=== PATIENT | male | born 2000 | race African-American/Black ===

== ENCOUNTER 2018-07-21 10:09 | Emergency (ER) | payer SELFPAY, OTHER ==
[2018-07-21 11:06] LABS: HEMATOCRIT 44.4 % (42.0-52.0); HEMOGLOBIN 15.3 g/dl (13.5-17.5); MEAN CORPUSCULAR HEMOGLOBIN 30.5 pg (27.0-33.0); MEAN CORPUSCULAR HGB CONC 34.5 g/dl (32.0-36.5); MEAN CORPUSCULAR VOLUME 88.4 fl (80.0-96.0); PLATELET COUNT, AUTOMATED 199 10^3/uL (150-450); RED BLOOD COUNT 5.02 10^6/uL (4.30-6.10); RED CELL DISTRIBUTION WIDTH 12.7 % (11.5-14.5); WHITE BLOOD COUNT 4.2 10^3/uL (4.0-10.0)
[2018-07-21 11:56] LABS: AMPHETAMINES LEVEL URINE NEGATIVE (NEGATIVE); BARBITURATES URINE NEGATIVE (NEGATIVE); BENZODIAZEPINES URINE NEGATIVE (NEGATIVE); CANNABINOIDS URINE POSITIVE (NEGATIVE); COCAINE METABOLITE URINE NEGATIVE (NEGATIVE); METHADONE URINE NEGATIVE (NEGATIVE); OPIATES URINE NEGATIVE (NEGATIVE); PHENCYCLIDINE URINE NEGATIVE (NEGATIVE)
[2018-07-21 12:21] LABS: ACETAMINOPHEN LEVEL < 2.0 UG/ML (10.0-30.0); ALBUMIN 4.6 GM/DL (3.2-5.2); ALBUMIN/GLOBULIN RATIO 1.53 (1.00-1.93); ALKALINE PHOSPHATASE 85 U/L (45-117); ALT/SGPT 25 U/L (12-78); ANION GAP 7 MEQ/L (8-16); AST/SGOT 22 U/L (7-37); BILIRUBIN,DIRECT 0.2 MG/DL (0.0-0.2); BILIRUBIN,TOTAL 0.5 MG/DL (0.2-1.0); BLOOD UREA NITROGEN 19 MG/DL (7-18); CARBON DIOXIDE LEVEL 27 MEQ/L (21-32); CHLORIDE LEVEL 107 MEQ/L (98-107); ETHYL ALCOHOL (ETHANOL) < 0.003 % (0.000-0.010); GLUCOSE, FASTING 86 MG/DL (70-100); POTASSIUM SERUM 3.9 MEQ/L (3.5-5.1); SALICYLATE LEVEL 2.4 MG/DL (5.0-30.0); SODIUM LEVEL 141 MEQ/L (136-145); THYROID STIMULATING HORMONE 0.846 uIU/ML (0.463-3.98); TOTAL PROTEIN 7.6 GM/DL (6.4-8.2)
== END 2018-07-21 16:28 | disposition home or self-care (01) ==
LOC: M ED 10:09
DX: F43.20 Adjustment disorder, unspecified (principal); F17.210 Nicotine dependence, cigarettes, uncomplicated
CPT/HCPCS: G0480

== ENCOUNTER → 2020-06-04 | Emergency (ER) | payer MEDICAID, OTHER | END | disposition home or self-care (01) | LOC: M ED 13:55 | DX: Z46.89 Encounter for fitting and adjustment of other specified devices (principal); S69.91XD Unspecified injury of right wrist, hand and finger(s), subsequent encounter; X58.XXXD Exposure to other specified factors, subsequent encounter; Y92.9 Unspecified place or not applicable; Y93.9 Activity, unspecified; Y99.9 Unspecified external cause status ==

== ENCOUNTER 2021-09-25 02:27 | Inpatient (IN) | payer MEDICAID, OTHER ==
[~2021-09-25] VITALS: Ht 180.3 cm; Wt 72.4 kg
--- OUTSIDE RECORDS SUMMARY | 2021-09-25 02:31 | CCD ---
Author Author [facility] Organization [facility] Address Unknown Phone Unavailable Care Team Providers Care Assembly Machine Offbearer Name Role Phone Jessica Wood Unavailable Re-disclosure Warning The records that you are about to access may contain information from federally-assisted alcohol or drug abuse programs. If such information is present, then the following federally mandated warning applies: This information has been disclosed to you from records protected by federal confidentiality rules (42 CFR part 2). The federal rules prohibit you from making any further disclosure of this information unless further disclosure is expressly permitted by the written consent of the person to whom it pertains or as otherwise permitted by 42 CFR part 2. A general authorization for the release of medical or other information is NOT sufficient for this purpose. The Federal rules restrict any use of the information to criminally investigate or prosecute any alcohol or drug abuse patient.The records that you are about to access may contain highly sensitive health information, the redisclosure of which is protected by Article 27-F of the [facility] Public Health law. If you continue you may have access to information: Regarding HIV / AIDS; Provided by facilities licensed or operated by the [facility] Office of Mental Health; or Provided by the [facility] Office for People With Developmental Disabilities. If such information is present, then the following [facility] mandated warning applies: This information has been disclosed to you from confidential records which are protected by state law. State law prohibits you from making any further disclosure of this information without the specific written consent of the person to whom it pertains, or as otherwise permitted by law. Any unauthorized further disclosure in violation of state law may result in a fine or [place] [facility] sentence or both. A general authorization for the release of medical or other information is NOT sufficient authorization for further disc losure. Encounters Encounter Providers Location Date Indications Data Source(s ) Crisis Intervention - Brief Attender: Jessica Wood [facility] 05/06/2021 01:00:00 AM EDT - 05/06/2021 01:00:00 AM EDT [facility] ([facility]) Attender: Jessica Wood 05/06/2021 12:00:00 AM E DT [facility] ([facility]) Medications No Information Insurance Providers Payer name Policy type / Coverage type Policy ID Covered alliance party ID Covered alliance party's relationship to calvert Policy [place] Plan Information Medicaid S [id number] S [id number] Managed Care - Community Plan [facility] P [id number] S [id number] Medicaid S [id number] S [id number] Managed Care - Community Plan [facility] P [id number] S [id number] D Managed Care [facility] P [id number] S [id number] Managed Care - Community Plan [facility] P [id number] S [id number] Medicaid S [id number] S [id number] Managed Care - Community Plan [facility] P [id number] S [id number] Managed Care - [facility] Community Plan P [id number] S [id number] MEDICAID M [id number] Self [id number] [facility] I [id number] Self [id number] [facility] I [id number] [place] [id number] [place] [id number] SP [id number] MEDICAID [id number] SP [id number] [place] [id number] SP [id number] UNHC COMMUNITY PLAN [facility] [id number] SP [id number] SELF PAY ONLY [id number] SP [id number] UNHC COMMUNITY PLAN MCDO [id number] SP [id number] UNHC COMMUNITY PLAN MCDO [id number] SP [id number] [employer] PLAN [id number] SP [id number] zzMedicaid FFS O [id number] S [id number] [employer]UE [employer] HANSEN PLAN UNAVAILABLE SP UNAVAILABLE MEDICAID S [id number] S [id number] [employer] BCBS P [id number] S [id number] BLUE CROSS HANSEN PLAN [id number] SP [id number] Problems, Conditions, and Diagnoses Code Display Name Description Problem Type Effective Dates Data Source(s) F31.9 Bipolar disorder, unspecified Unspecified Bipola r and Related Disorder Condition 05/06/2021 12:00:00 AM EDT [facility] ([facility]) Surgeries/Procedures Procedure Description Date Indications Data Source(s) Crisis intervention service, per 15 minutes 05/06/2021 12:00:00 AM EDT - 05/06/2021 12:00:00 AM EDT [facility] ([facility]) Crisis intervention service, per 15 minutes 05/06/2021 12:00:00 AM EDT [facility] ([facility]) Results No Information Social History Code Duration Value Status Description Data Source(s ) Smoking 05/06/2021 12:00:00 AM EDT Unknown if ever smoked comp leted Unknown if ever smoked [facility] ([facility]) Vital Signs ID Date Data Source UNK Name Value Range Interpretation Code Description Data Source(s) Body weight 133.00 [lb_av] 133.00 [lb_av] JAMSHID T ([facility]) Systolic blood pressure 97 mm[Hg] 97 mm[Hg] M [facility] ([facility]) Diastolic blood pressure 74 mm[Hg] 74 mm[Hg] [facility] ([facility]) Body temperature 96.3 [degF] 96.3 [degF] [facility] ([facility]) Respiratory rate 20 /min 20 /min [facility] ( [facility]) Heart rate 73 /min 73 /min [facility] ([facility])
--- OUTSIDE RECORDS SUMMARY | 2021-09-25 04:17 | CCD ---
Author Author [facility] Organization [facility] Address Unknown Phone Unavailable Care Team Providers Care Batt Machine Operator Name Role Phone Jessica Wood Unavailable Re-disclosure [...] is protected by Article 27-F of the [facility] Public Health law. If you continue you may have access to information: Regarding HIV / AIDS; Provided by facilities licensed or operated by the [facility] Office of Mental Health; or Provided by the [facility] Office for People With Developmental Disabilities. If such information is present, then the following [facility] mandated warning applies: This information has been [...] law may result in a fine or longterm sentence or both. A general authorization for the release of medical or other information is NOT sufficient authorization for further disc losure. Encounters Encounter Providers Location Date Indications Data Source(s ) Crisis Intervention - Brief Attender: Jessica Wood [facility] 05/06/2021 01:00:00 AM EDT - 05/06/2021 01:00:00 AM EDT [facility] ([facility]) Attender: Jessica Wood 05/06/2021 12:00:00 AM E DT [facility] ([facility]) Medications No Information Insurance Providers Payer name Policy type / Coverage type Policy ID Covered alliance party ID Covered alliance party's relationship to calvert Policy Calvert Plan Information Medicaid S [id number] S [id number] Managed Care - Community Plan [facility] P [id number] S [id number] Medicaid S [id number] S [id number] Managed Care - Community Plan [facility] P [id number] S [id number] D Managed Care [facility] P [id number] S [id number] Managed Care - Community Plan [facility] P [id number] S [id number] Medicaid S [id number] S [id number] Managed Care - Community Plan [facility] P [id number] S [id number] Managed Care - [facility] Community Plan P [id number] S [id number] MEDICAID M [id number] Self [id number] [facility] I [id number] Self [id number] [facility] I [id number] Self [id number] [place] [id number] SP [id number] K MEDICAID [id number] SP [id number] [place] [id number] SP [id number] [facility] [id number] SP [id number] SELF PAY ONLY [id number] SP [id number] UNHC COMMUNITY PLAN MCDO [id number] SP [id number] UNHC COMMUNITY PLAN MCDO [id number] SP [id number] [employer] PLAN [id number] SP [id number] zzMedicaid FFS O [id number] S [id number] BLUE CROSS HANSEN PLAN UNAVAILABLE SP UNAVAILABLE MEDICAID S [id number] S [id number] [employer] BCBS P [id number] S [id number] BLUE CROSS HANSEN PLAN [id number] SP [id number] Problems, Conditions, and Diagnoses Code Display Name Description Problem Type Effective Dates Data Source(s) F31.9 Bipolar disorder, unspecified Unspecified Bipola r and Related Disorder Condition 05/06/2021 12:00:00 AM EDT [facility] ([facility]) Surgeries/Procedures Procedure Description Date Indications Data Source(s) Crisis intervention service, per 15 minutes 05/06/2021 12:00:00 AM EDT - 05/06/2021 12:00:00 AM EDT [facility] ([facility]) Crisis intervention service, per 15 minutes 05/06/2021 12:00:00 AM EDT [facility] ([facility]) Results No Information Social History Code Duration Value Status Description Data Source(s ) Smoking 05/06/2021 12:00:00 AM EDT Unknown if ever smoked comp leted Unknown if ever smoked [facility] ([facility]) Vital Signs ID Date Data Source UNK Name Value Range Interpretation Code Description Data Source(s) Body weight 133.00 [lb_av] 133.00 [lb_av] ENOCHEN T ([facility]) Systolic blood pressure 97 mm[Hg] 97 mm[Hg] M [facility] ([facility]) Heart rate 73 /min 73 /min [facility] ([facility]) Diastolic blood pressure 74 mm[Hg] 74 mm[Hg] [facility] ([facility]) Body temperature 96.3 [degF] 96.3 [degF] [facility] ([facility]) Respiratory rate 20 /min 20 /min [facility] ( [facility])
[2021-09-25 04:21] LABS: AMPHETAMINES LEVEL URINE NEGATIVE (NEGATIVE); BARBITURATES URINE NEGATIVE (NEGATIVE); BENZODIAZEPINES URINE NEGATIVE (NEGATIVE); CANNABINOIDS URINE POSITIVE (NEGATIVE); COCAINE METABOLITE URINE NEGATIVE (NEGATIVE); HEMATOCRIT 40.8 % (42.0-52.0); HEMOGLOBIN 14.1 g/dl (13.5-17.5); MEAN CORPUSCULAR HEMOGLOBIN 29.7 pg (27.0-33.0); MEAN CORPUSCULAR HGB CONC 34.6 g/dl (32.0-36.5); MEAN CORPUSCULAR VOLUME 86.1 fl (80.0-96.0); METHADONE URINE NEGATIVE (NEGATIVE); OPIATES URINE NEGATIVE (NEGATIVE); PHENCYCLIDINE URINE NEGATIVE (NEGATIVE); PLATELET COUNT, AUTOMATED 203 10^3/uL (150-450); RED BLOOD COUNT 4.74 10^6/uL (4.30-6.10); WHITE BLOOD COUNT 5.3 10^3/uL (4.0-10.0)
[2021-09-25 04:47] LABS: ACETAMINOPHEN LEVEL < 2.0 UG/ML (10.0-30.0); ALBUMIN 3.9 GM/DL (3.2-5.2); ALT/SGPT 19 U/L (12-78); BILIRUBIN,DIRECT 0.3 MG/DL (0.0-0.2); BILIRUBIN,TOTAL 0.8 MG/DL (0.2-1.0); BLOOD UREA NITROGEN 12 MG/DL (7-18); CALCIUM LEVEL 8.8 MG/DL (8.5-10.1); CARBON DIOXIDE LEVEL 27 MEQ/L (21-32); CHLORIDE LEVEL 105 MEQ/L (98-107); ETHYL ALCOHOL (ETHANOL) < 0.003 % (0.000-0.010); GLOMERULAR FILTRATION RATE > 60.0 (>60); GLUCOSE, FASTING 85 MG/DL (70-100); POTASSIUM SERUM 3.4 MEQ/L (3.5-5.1); SALICYLATE LEVEL < 1.7 MG/DL (5.0-30.0); SODIUM LEVEL 141 MEQ/L (136-145); THYROID STIMULATING HORMONE 0.832 uIU/ML (0.358-3.740)
[2021-09-25 05:00] LABS: RSV AMPLIFICATION NEGATIVE (NEGATIVE)
[2021-09-25] MEDS ORDERED: HOME MED LIST COMPLETE! XX SCH (14:10)
[2021-09-25] MEDS ORDERED: traZODone 50 MG TAB PO PRN (23:25)
[2021-09-25] MEDS ORDERED: MAALOX 30 ML SUSP *UDC PO PRN (23:25)
[2021-09-25] MEDS ORDERED: MOM 30ML SUSPENSION UDC PO PRN (23:25)
[2021-09-25] MEDS ORDERED: ACETAMINOPHEN TAB 650MG DOSE (2X325MG) PO PRN (23:25)
[2021-09-25 23:59] VITALS: BP 148/78
--- OUTSIDE RECORDS SUMMARY | 2021-09-26 00:20 | CCD ---
Author Author [facility] Organization [facility] Address Unknown Phone Unavailable Care Team Providers Care Asbestos Remover Name Role Phone Jessica Wood Unavailable Re-disclosure [...] is protected by Article 27-F of the [facility] Public Health law. If you continue you may have access to information: Regarding HIV / AIDS; Provided by facilities licensed or operated by the [facility] Office of Mental Health; or Provided by the [facility] Office for People With Developmental Disabilities. If such information is present, then the following [facility] mandated warning applies: This information has been [...] law may result in a fine or [facility] sentence or both. A general authorization for the release of medical or other information is NOT sufficient authorization for further disc losure. Encounters Encounter Providers Location Date Indications Data Source(s ) Crisis Intervention - Brief Attender: Jessica Wood [facility] Shelter 05/06/2021 01:00:00 AM EDT - 05/06/2021 01:00:00 AM EDT [facility] ([facility]) Attender: Jessica Wood 05/06/2021 12:00:00 AM E DT [facility] ([facility]) Medications No Information Insurance Providers Payer name Policy type / Coverage type Policy ID Covered libertarian ID Covered libertarian's relationship to calvert Policy Calvert Plan Information Medicaid S [id number] S [id number] Managed Care - Community Plan [facility] P [id number] S [id number] Medicaid S [id number] S [id number] Managed Care - Community Plan [facility] P [id number] S [id number] D Managed Care [facility] P [id number] S [id number] Managed Care - Community Plan [facility] P [id number] S [id number] Medicaid S [id number] S [id number] Managed Care - Community Plan [facility] P [id number] S [id number] Managed Care - [facility] Community Plan P [id number] S [id number] MEDICAID M [id number] Self [id number] [facility] I [id number] Self [id number] [facility] I [id number] Self [id number] [place] [id number] SP [id number] MEDICAID [id number] SP [id number] [place] [id number] SP [id number] UNHC COMMUNITY PLAN [facility] [id number] SP [id number] SELF PAY ONLY [id number] SP [id number] UNHC COMMUNITY PLAN MCDO [id number] SP [id number] UNHC COMMUNITY PLAN MCDO [id number] SP [id number] BLUE CROSS HANSEN PLAN [id number] SP [id number] zzMedicaid FFS O [id number] S [id number] BLUE CROSS HANSEN PLAN UNAVAILABLE SP UNAVAILABLE MEDICAID S [id number] S [id number] [employer] BCBS P [id number] S [id number] BLUE CROSS HANSEN PLAN [id number] SP [id number] Problems, Conditions, and Diagnoses Code Display Name Description Problem Type Effective Dates Data Source(s) F31.9 Bipolar disorder, unspecified Unspecified Bipola r and Related Disorder Condition 05/06/2021 12:00:00 AM EDT [facility] ([facility]) Surgeries/Procedures Procedure Description Date Indications Data Source(s) Crisis intervention service, per 15 minutes 05/06/2021 12:00:00 AM EDT - 05/06/2021 12:00:00 AM EDT [facility] ([facility]) Crisis intervention service, per 15 minutes 05/06/2021 12:00:00 AM EDT [facility] ([facility]) Results No Information Social History Code Duration Value Status Description Data Source(s ) Smoking 05/06/2021 12:00:00 AM EDT Unknown if ever smoked comp leted Unknown if ever smoked [facility] ([facility]) Vital Signs ID Date Data Source UNK Name Value Range Interpretation Code Description Data Source(s) Body weight 133.00 [lb_av] 133.00 [lb_av] MEDEN T ([facility]) Heart rate 73 /min 73 /min [facility] ([facility]) Respiratory rate 20 /min 20 /min [facility] ( [facility]) Systolic blood pressure 97 mm[Hg] 97 mm[Hg] M [facility] ([facility]) Diastolic blood pressure 74 mm[Hg] 74 mm[Hg] [facility] ([facility]) Body temperature 96.3 [degF] 96.3 [degF] [facility] ([facility])
[2021-09-26 06:12] VITALS: BP 145/63
--- NOTE | 2021-09-26 13:45 | MHHPEPDOC ---
General Date Of Admission: Sep 25, 2021 Legal Status: 9.39 Chief Complaint suicidal History of Present Illness HISTORY OF THE PRESENT ILLNESS: Patient is a 21 -year-old , male, who has a history of adjustment disorder who self presented to the ED. States "having a difficult time coping with life", states has a problem with being, "I blame myself, I feel I can't do anything right, now just isabel just wanna give up on it, I don't wanna do anything, I want it done with quick". States father told him he is gonna move, states was staying at a stepmother's friend's house. States "my head's split, feels there's a reason to be alive". Denies hallucinations, paranoia. States got out of [facility] recently Sep 18, was there for 4 months, states on probation for 10 years, will not discuss any details. Stressors include that he doesn't like choices he made in life including staying in [place], not joining the , feeling lonely, isolated. 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 Denies any hx of inpatient admissions. No weapons at home reportedly. States feels father is only person he is close to, "If he dies or leaves I will be alone". States depression got worse after ending a relationship 4 years ago, "has always stuck with me". Per PSA report: "pt is calm/cooperative, quiet, poor eye contact, states he brought self to ED tonight due to hopelessness and thoughts of suicide. Pt reports he had been living with his father though it was recently discoeverd by henrietta that pt had been living there and this may cause father to lose his apartment. Pt feels guilty about this and adds that father is angry with pt as well. Pt reports he and father have a strained relationship and father is his only support, pt has been "walking around" for past 2 days, admits to feeling very hopeless and [facility], actually walked past [address] bridge but then continued on to [facility]. Pt admits to hx of depression and anxiety, some self harm(cutting) in past but denies any prior psych admissions or suicide attempts. Pt denies HI/AH/VH, denies any substance abuse though admits to some ETOH and cigarettes "to make myself feel better", no current outpt tx or medications. Pt verbalized in several different ways how hopeless he feels including "life won, I just wanna tap out", and "there's nothing for me anymore", "I've lived long enough", and when talking about suicide states "I just want to do it quickly, something abrupt that's why I thought of jumping off the bridge". Pt reports he has no support, adds "I don't have anyone and I don't have any future"." Psychiatric Review of Systems Depression (2 or more weeks): depressed mood, anhedonia, feelings of excess/guilt (hypersomina), feelings of worthlesness, decreased energy, difficulty concentrating, psychomotor changes, suicidal thoughts Niru (4 or more days of): denies Psychosis: denies PTSD: history of trauma (states "I don't know"), denies Anxiety: situational anxiety, stressor related anxiety, panic attacks ("In social situations") Anxiety/ 6 months or more of: personality cluster A,BC (reports self harming for attention, 1x when in 10th grade, feelings of emptiness, fears of being abandoned) Past Psychiatric History Previous Psychiatric Diagnosis: adjustment disorder Previous Psychiatric Admissions: none Suicide Attempts: denies Psychiatric Follow-up: no outpatient provider Psychiatric medications: denies ever taking medication Past Medical History Medical Problems denies Head Injury: No Seizures: No Hospitalizations: Yes Surgeries: Yes (broken L arm, repair, summer 2020) Family Medical/Psychiatric HX Medical Problems denies, states doesn't know parents Psychiatric Disorders: No Addiction: No Suicide Attemps/Completions: No Addiction History nicotine (1 pack every 3 days), alcohol ("I don't know", last drink yesterday, 2 beers, "makes me feel social"), other (cannabis) Social History Childhood: Born in [place], came to [place] are at age [age] years old, multiple half siblings Abuse/Trauma: not open to discuss on this occasion Current Living Situation: currently homeless, stated went to [facility] Education: grade 12 Employment: unemployed Social Support: "my father, but at this point going through divorce" Legal: states on probation Marital: never , no kids Mental Status Examination General Appearance: well groomed, hospital scubs/clothing, other (glasses) Build: thin, tall Demeanor: withdrawn, guarded Eye Contact: avoidant Activity: slowed Behavior: cooperative, loss of interests, anhedonia, withdrawn Speech: slow, low in volume Mood: depressed, anxious Affect: flat Thought Process: circumstantial, depressed, slow Thought Content (Delusions): other (endorses SI) Thought Content (Other): phobic Thought Content (Aggressive): none reported Perception (Hallucinations): none reported Perception (Other): none reported Cognition (Impairment of): attention/concentration Cognition(Intelligence Est.): average Oriented: Awake, Alert, Oriented times three Insight: poor Judgment: Poor Psychosis: Denies Diagnoses MDD, recurrent, severe, melancholic features Cannabis use disorder Cluster B/C traits Rule out PTSD A-FIB/CHADSVASC A-FIB History Current/History of A-Fib/PAF?: No Current PO Anticoag Therapy: No Age/Risk Factor Scoring CHADSVASC: CHADSVASC Response (Comments) Value Age Risk Factor Age < 65 years old 0 Gender Risk Factor Male 0 Hx of CHF No 0 Hx of HTN No 0 Hx of Stroke/TIA/or VTE No 0 Hx of Diabetes No 0 Hx of Vascular Disease No 0 Total 0 Treatment Treatment ordered: NONE Reason Anticoagulant not given: Not indicated/[id number] Assessment Patient a 21-year-old -Beninese male who self presented to the ED due to reported severe symptoms of anhedonia, depressed mood, suicidal ideations, states he feels like he is stuck, hopeless, helpless in context of acute stressors of loneliness, isolation, homelessness, not having outpatient supports, history of reported incarceration with recent discharge and on probation reportedly for 10 years, reports that this may impact his ability to be employed and support himself. Denies significant polysubstance abuse, reports occasional alcohol use, routine cannabis use, was educated on substance use but remains precontemplative regarding his cannabis use. Patient symptoms primarily centered around melancholic depression, which has been reportedly going on for multiple years, denies history of suicide attempts or inpatient admissions, proximal college screen positive for cannabis, no acute physical com plaints. Labs unremarkable, TSH within normal limits no history of hypothyroidism. Patient agreeable to starting sertraline 50 mg p.o. daily for depression, Wellbutrin 150 mg XL for depression, discussed side effects including but not limited to suicidal ideations and those under age 25, serotonin syndrome which is rare, GI disturbances, weight changes, changes in sleep, risk for allergy, sexual side effects, and other common rare side effects. Initial Treatment Plan 1. Patient was admitted on a [9.39] status. 2. Complete history was obtained. 3. With patients permission, family will be contacted and database will be expanded. 4. Patients medication regimen will be reviewed and changed accordingly. 5. Patient will be provided with protected environment. 6. Patient will be treated with individual, group, and milieu therapies. 7. Patient will receive supportive psych-education. 8. Discharge planning will commence immediately. 9. Outpatient follow-up treatment will be strongly recommended. 10. The initial treatment plan will focus initially on: * Depression. * Risk for suicide. ESTIMATED LENGTH OF STAY: 5-10 DAYS. TIME SPENT COUNSELING AND COORDINATING INITIAL CARE: 60 minutes. Tobacco Cessation Screen If Patient is a Smoker yes Tobacco Cessation Tx Ordered?: Yes N/A-No Antipsychotics Vital Signs Vital Signs Date Time Temp Pulse Resp B/P (MAP) Pulse Ox O2 Delivery O2 Flow Rate FiO2 09/26/21 06:12 98.7 56 16 145/63 (90) 99 Room Air Medications No Active Prescriptions or Reported Meds Allergies Coded Allergies: No Known Allergies (Unverified , 09/25/21) ARYAN VICENTE MD Sep 26, 2021 13:45
[2021-09-26] MEDS: SERTRALINE HCL 50 MG TAB PO SCH (17:47)
[2021-09-26] MEDS: buPROPion **XL** TABLET 150MG (WELLBUTRIN XL) PO SCH (17:47)
[2021-09-26 17:53] VITALS: BP 137/74
--- NOTE | 2021-09-26 18:51 | ECGEPIP ---
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
[2021-09-27 07:07] VITALS: BP 129/65
[2021-09-27] MEDS: SERTRALINE HCL 50 MG TAB PO SCH (08:32)
[2021-09-27] MEDS: buPROPion **XL** TABLET 150MG (WELLBUTRIN XL) PO SCH (08:32)
--- NOTE | 2021-09-27 10:41 | MHIPNPDOC ---
[facility] Progress Note Progress Note DATE OF SERVICE: 09/27/21 HISTORY: Patient is a 21 -year-old , male, who has a history of adjustment disorder who self presented to the ED. States "having a difficult time coping with life", states has a problem with being, "I blame myself, I feel I can't do anything right, now just isabel just wanna give up on it, I don't wanna do anything, I want it done with quick". States father told him he is gonna move, states was staying at a stepmother's friend's house. States "my head's split, feels there's a reason to be alive". Denies hallucinations, p lotusia. got out of assisted recently Sep 18, was there for 4 months, states on probation for 10 years, will not discuss any details. Stressors include that he doesn't like choices he made in life including staying in [place], not joining the , feeling lonely, isolated. 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 Denies any hx of inpatient admissions. No weapons at home reportedly. States feels father is only person he is close to, "If he dies or leaves I will be alone". States depression got worse after ending a relationship 4 years ago, "has always stuck with me". Interval: Patient continues to be severely depressed, is staring at the ground and poorly engaged in interview stating I don't know to most questioning, denies acute physical complaints when asked about suicidal ideation states " not really I'm, bored now", when asked if he'll attend groups states " I don't really care about anything and I have nothing to say to anyone", was encouraged to attend groups at least sitting there and listening in, rather than isolating in his room. Reports sleep is fragmented, continues to have low energy, appetite is fair. VITAL SIGNS: See below. NEW TEST RESULTS: see below CURRENT MEDICATIONS: See below. MENTAL STATUS EXAMINATION: General Appearance: well groomed, hospital scubs/clothing, glasses, appears stated age, tall and thin, withdrawn Demeanor: withdrawn, guarded Eye Contact: avoidant, looking down the ground Activity: slowed Behavior: poorly cooperative, loss of interests, anhedonia, withdrawn Speech: slow, low in volume, nonspontaneous, minimal Mood: " I just don't care about anything" Affect: flat, anhedonic, withdrawn, mood congruent Thought Process: circumstantial, depressed, slowed Thought Content (Delusions): Vague suicidal ideations Thought Content (Other): phobic Thought Content (Aggressive): none reported Perception (Hallucinations): none reported Perception (Other): none reported Cognition (Impairment of): attention/concentration Cognition(Intelligence Est.): average Oriented: Awake, Alert, Oriented times three Insight: poor Judgment: Poor Psychosis: Denies DIAGNOSES: MDD, recurrent, severe, melancholic features Insomnia Cannabis use disorder Cluster B/C traits Rule out PTSD ASSESSMENT: Patient continues to have symptoms of melancholic depression, reports depression worse in the mornings, low energy, anhedonic, low mood, vague suicidal ideations, continues to be at risk for self-harm taking the consideration also feelings of hopelessness, worthlessness and feelings of being stuck in situation. MANAGEMENT PLAN: Sertraline increased to 75 mg p.o. every morning, trazodone increased to 100 mg nightly scheduled, continue medications, patient aware and will take time for medications to be effective TIME SPENT: 20 minutes. Vital Signs Vital Signs Date Time Temp Pulse Resp B/P (MAP) Pulse Ox O2 Delivery O2 Flow Rate FiO2 09/27/21 07:07 98.8 61 16 129/65 (86) 99 Room Air Current Medications Current Medications Medications (Trade) Dose Ordered Sig/Beba Route PRN Reason Start Time Stop Time Status Last Admin Dose Admin Acetaminophen (Tylenol Tab) 650 mg Q6HP PRN PO HEADACHE or MILD DISCOMFORT 09/25/21 23:25 Al Hydrox/Mg Hydrox/Simethicone (Mylanta) 30 ml Q4HP PRN PO HEARTBURN/INDIGESTION 09/25/21 23:25 Bupropion HCl (Wellbutrin Xl) 150 mg QAM PO 09/26/21 09:00 09/27/21 08:32 Home Med (Home Med List Complete!) ASDIRECTED XX 09/25/21 14:10 09/25/21 14:12 DC Magnesium Hydroxide (Milk Of Magnesia) 30 ml DAILYPRN PRN PO CONSTIPATION 09/25/21 23:25 Sertraline HCl (Zoloft) 50 mg QAM PO 09/26/21 09:00 09/27/21 08:32 Trazodone HCl (Desyrel) 50 mg QHSP PRN PO INSOMNIA 09/25/21 23:25 09/26/21 00:08 Allergies Coded Allergies: No Known Allergies (Unverified , 09/25/21) ARYAN VICENTE MD Sep 27, 2021 10:41
--- NOTE | 2021-09-27 16:27 | HPEPDOC ---
[facility] Medical History & Physical Date of Admission Sep 25, 2021 Date of Service: Sep 27, 2021 History and Physical CHIEF COMPLAINT: depression HISTORY OF PRESENT ILLNESS: 21M who has a history of adjustment disorder who self presented to the ED, stating he was having difficulties coping with life. Stressors include that he doesn't like choices he made in life including staying in [place], not joining the , feeling lonely, isolated. On evaluation he denied any medical complaints. He denies chest pain, shortness of breath, abdominal pain, nausea, vomiting, diarrhea, headaches, changes in vision. PAST MEDICAL HISTORY: Denies PAST SURGICAL HISTORY: Denies. SOCIAL HISTORY: States he drinks alcohol socially - 3-4 drinks per month, occasional nicotine use 2-3 cigarettes / week, denies illicit drug use. FAMILY HISTORY: Denies, he states he does not know much about his parents. ALLERGIES: Please see below. REVIEW OF SYSTEMS: Negative except as per HPI. HOME MEDICATIONS: Please see below. PHYSICAL EXAMINATION: Vital Signs: reviewed General: NAD, sitting comfortably in chair HEENT: NC/AT, EOMI Neck: supple, no masses Chest: lungs CTA B/L Heart: +S1S2, RRR Abd: soft, NT, ND, +BS Ext: no edema Skin: no rashes MSK: full ROM at large joints Neuro: no gross focal deficits Psych: AAOx3 LABORATORY DATA: See below. MICROBIOLOGY: Please see below. A/P: 21M admitted for depression, possible concerns of suicidal ideation, with no past medical history. #SI - follow as per primary team - psychiatry Thank you for this consultation. Please reconsult as needed. Vital Signs Vital Signs Date Time Temp Pulse Resp B/P (MAP) Pulse Ox O2 Delivery O2 Flow Rate FiO2 09/27/21 07:07 98.8 61 16 129/65 (86) 99 Room Air Home Medications No Active Prescriptions or Reported Meds Allergies Coded Allergies: No Known Allergies (Unverified , 09/25/21) A-FIB/CHADSVASC A-FIB History Current/History of A-Fib/PAF?: No Age/Risk Factor Scoring CHADSVASC: CHADSVASC Response (Comments) Value Age Risk Factor Age < 65 years old 0 Gender Risk Factor Male 0 Hx of CHF No 0 Hx of HTN No 0 Hx of Stroke/TIA/or VTE No 0 Hx of Diabetes No 0 Hx of Vascular Disease No 0 Total 0 DANIELLE FELICIANO MD Sep 27, 2021 16:27
[2021-09-27 16:50] VITALS: BP 138/81
[2021-09-27] MEDS ORDERED: traZODone 100 MG TAB PO SCH (21:00)
--- NOTE | 2021-09-27 21:09 | ECGEPIP ---
[facility] Test Date: 2021-09-26 Pat Name: LEA HUA Department: Room: [place] [address] Gender: Male Float Remover: ANGELICA : 2000 Requested By: ARYAN Chew Order Number: [id number] Reading MD: Lázaro Schafer Measurements Intervals Platinum Rate: 63 P: 43 SD: 172 QRS: -48 QRSD: 94 T: 27 QT: 400 QTc: 409 Interpretive Statements Normal sinus rhythm Left anterior fascicular block Early anterior R wave progression No significant change when compared to prior tracing of 09/25/2021 Electronically Signed on 09-27-2021 21:09:32 EST by Lázaro Schafer
[2021-09-28 06:14] VITALS: BP 114/58
[2021-09-28] MEDS: buPROPion **XL** TABLET 150MG (WELLBUTRIN XL) PO SCH (09:36)
[2021-09-28] MEDS: SERTRALINE HCL 25 MG TABLET PO SCH (09:37)
[2021-09-28 19:11] VITALS: BP 132/74
[2021-09-28] MEDS ORDERED: traZODone 50 MG TAB PO SCH (21:00)
[2021-09-29 06:25] VITALS: BP 144/72
[2021-09-29] MEDS: SERTRALINE HCL 25 MG TABLET PO SCH (08:18)
[2021-09-29] MEDS: buPROPion **XL** TABLET 150MG (WELLBUTRIN XL) PO SCH (08:18)
--- NOTE | 2021-09-29 12:27 | MHIPNPDOC ---
[facility] Progress Note Progress Note DATE OF SERVICE: 09/29/21 HISTORY: Patient is a 21 -year-old , male, who has a history of adjustment disorder who self presented to the ED. States "having a difficult time coping with life", states has a problem with being, "I blame myself, I feel I can't do anything right, now just isabel just wanna give up on it, I don't wanna do anything, I want it done with quick". States father told him he is gonna move, states was staying at a stepmother's friend's house. States "my head's split, feels there's a reason to be alive". Denies hallucinations, p chuynoia. got out of [facility] recently Sep 18, was there for 4 months, states on probation for 10 years, will not discuss any details. Stressors include that he doesn't like choices he made in life including staying in [place], not joining the , feeling lonely, isolated. 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 Denies any hx of inpatient admissions. No weapons at home reportedly. States feels father is only person he is close to, "If he dies or leaves I will be alone". States depression got worse after ending a relationship 4 years ago, "has always stuck with me". Interval: Patient continues to be severely depressed, is staring at the ground and poorly engaged in interview stating I don't know to most questioning, denies acute physical complaints when asked about suicidal ideation states " not really I'm, bored now", when asked if he'll attend groups states " I don't really care about anything and I have nothing to say to anyone", was encouraged to attend groups at least sitting there and listening in, rather than isolating in his room. Reports sleep is fragmented, continues to have low energy, appetite is fair. VITAL SIGNS: See below. NEW TEST RESULTS: see below CURRENT MEDICATIONS: See below. MENTAL STATUS EXAMINATION: General Appearance: well groomed, hospital scrubs/clothing, glasses, appears stated age, tall and thin, withdrawn Demeanor: withdrawn Eye Contact: avoidant, looking down Activity: psychomotor retardation Behavior: poorly cooperative, loss of interests, anhedonia, withdrawn Speech: slow, low in volume, a little more spontaneous, more fluent Mood: "Low energy but I'm content" Affect: flat, anhedonic, withdrawn, mood congruent Thought Process: depressed, slowed Thought Content (Delusions): Vague suicidal ideations Thought Content (Other): phobic Thought Content (Aggressive): none reported Perception (Hallucinations): none reported Perception (Other): none reported Cognition (Impairment of): attention/concentration Cognition(Intelligence Est.): average Oriented: Awake, Alert, Oriented times three Insight: poor Judgment: Poor Psychosis: Denies DIAGNOSES: MDD, recurrent, severe, melancholic features Insomnia Cannabis use disorder Cluster B/C traits Rule out PTSD ASSESSMENT: Patient reports his father's divorce is affecting him, he says he wants to find another place because he lives with his father. He worries because he doesn't have a lot of friends and not a lot of relatives. His father is getting from his stepmother. He says it upsets him because his father is unhappy. He says during the morning hours he feels down but at night he feels better. He says last night he was able to sleep the whole night and it made him feel better because he usually wakes up earlier. He says his mind races at night just before going to sleep. He says Trazodone 150 mgs at bedtime was able to help him sleep better, he is yawning, but feels well rested today. Sertraline to 100 mgs Po and yesterday, Trazodone was increased to 150 mgs PO QHS. TIME SPENT: 20 minutes. Vital Signs Vital Signs Date Time Temp Pulse Resp B/P (MAP) Pulse Ox O2 Delivery O2 Flow Rate FiO2 09/29/21 06:25 98.8 66 16 144/72 (96) 97 Room Air Current Medications Current Medications Medications (Trade) Dose Ordered Sig/Beba Route PRN Reason Start Time Stop Time Status Last Admin Dose Admin Acetaminophen (Tylenol Tab) 650 mg Q6HP PRN PO HEADACHE or MILD DISCOMFORT 09/25/21 23:25 Al Hydrox/Mg Hydrox/Simethicone (Mylanta) 30 ml Q4HP PRN PO HEARTBURN/INDIGESTION 09/25/21 23:25 Bupropion HCl (Wellbutrin Xl) 150 mg QAM PO 09/26/21 09:00 09/29/21 08:18 Home Med (Home Med List Complete!) ASDIRECTED XX 09/25/21 14:10 09/25/21 14:12 DC Magnesium Hydroxide (Milk Of Magnesia) 30 ml DAILYPRN PRN PO CONSTIPATION 09/25/21 23:25 Sertraline HCl (Zoloft) 50 mg QAM PO 09/26/21 09:00 09/27/21 10:41 DC 09/27/21 08:32 Sertraline HCl (Zoloft) 75 mg QAM PO 09/28/21 09:00 09/29/21 08:18 Trazodone HCl (Desyrel) 50 mg QHSP PRN PO INSOMNIA 09/25/21 23:25 09/27/21 10:40 DC 09/26/21 00:08 Trazodone HCl (Desyrel) 100 mg QHS PO 09/27/21 21:00 09/28/21 17:30 DC 09/27/21 21:41 Trazodone HCl (Desyrel) 150 mg QHS PO 09/28/21 21:00 09/28/21 20:51 Allergies Coded Allergies: No Known Allergies (Unverified , 09/25/21) ANDIE KYLE MD Sep 29, 2021 12:27
--- NOTE | 2021-09-29 16:49 | MHIPNPDOC ---
[facility] Progress Note Progress Note DATE OF SERVICE: 09/28/21 HISTORY: Patient is a 21 -year-old , male, who has a history of adjustment disorder who self presented to the ED. States "having a difficult time coping with life", states has a problem with being, "I blame myself, I feel I can't do anything right, now just isabel just wanna give up on it, I don't wanna do anything, I want it done with quick". States father told him he is gonna move, states was staying at a stepmother's friend's house. States "my head's split, feels there's a reason to be alive". Denies hallucinations, p lotusia. got out of [facility] recently Sep 18, was there for 4 months, states on probation for 10 years, will not discuss any details. Stressors include that he doesn't like choices he made in life including staying in [place], not joining the , feeling lonely, isolated. 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 Denies any hx of inpatient admissions. No weapons at home reportedly. States feels father is only person he is close to, "If he dies or leaves I will be alone". States depression got worse after ending a relationship 4 years ago, "has always stuck with me". Interval: Patient continues to be severely depressed, is staring at the ground and poorly engaged in interview stating I don't know to most questioning, denies acute physical complaints when asked about suicidal ideation states " not really I'm, bored now", when asked if he'll attend groups states " I don't really care about anything and I have nothing to say to anyone", was encouraged to attend groups at least sitting there and listening in, rather than isolating in his room. Reports sleep is fragmented, continues to have low energy, appetite is fair. VITAL SIGNS: See below. NEW TEST RESULTS: see below CURRENT MEDICATIONS: See below. MENTAL STATUS EXAMINATION: General Appearance: well groomed, hospital scubs/clothing, glasses, appears stated age, tall and thin, withdrawn Demeanor: withdrawn, guarded Eye Contact: avoidant, looking down the ground Activity: slowed Behavior: poorly cooperative, calm, withdrawn Speech: Non spontaneous, not fluent Mood: " a little bit better" Affect: not congruent with mood, he looks sad, depressed Thought Process: Depressed, slow Thought Content (Delusions): Denies SI/HI Thought Content (Other): phobic Thought Content (Aggressive): none reported Perception (Hallucinations): none reported Perception (Other): none reported Cognition (Impairment of): attention/concentration Cognition(Intelligence Est.): average Oriented: Awake, Alert, Oriented times three Insight: poor Judgment: Poor Psychosis: Denies DIAGNOSES: MDD, recurrent, severe, melancholic features Insomnia Cannabis use disorder Cluster B/C traits Rule out PTSD ASSESSMENT: Patienttook the 75 mgs of Zoloft today and stated it had made him feel a little bit calmer. He continues to report depression but he is not suicidal, not homicidal at this time. However, he continues to endorse paranoid ideation and ideas of reference. MANAGEMENT PLAN: Continue with the same treatment plan TIME SPENT: 20 minutes. Vital Signs Vital Signs Date Time Temp Pulse Resp B/P (MAP) Pulse Ox O2 Delivery O2 Flow Rate FiO2 09/28/21 06:14 98.8 82 18 114/58 (76) 98 Room Air Current Medications Current Medications Medications (Trade) Dose Ordered Sig/Beba Route PRN Reason Start Time Stop Time Status Last Admin Dose Admin Acetaminophen (Tylenol Tab) 650 mg Q6HP PRN PO HEADACHE or MILD DISCOMFORT 09/25/21 23:25 Al Hydrox/Mg Hydrox/Simethicone (Mylanta) 30 ml Q4HP PRN PO HEARTBURN/INDIGESTION 09/25/21 23:25 Bupropion HCl (Wellbutrin Xl) 150 mg QAM PO 09/26/21 09:00 09/28/21 09:36 Home Med (Home Med List Complete!) ASDIRECTED XX 09/25/21 14:10 09/25/21 14:12 DC Magnesium Hydroxide (Milk Of Magnesia) 30 ml DAILYPRN PRN PO CONSTIPATION 09/25/21 23:25 Sertraline HCl (Zoloft) 50 mg QAM PO 09/26/21 09:00 09/27/21 10:41 DC 09/27/21 08:32 Sertraline HCl (Zoloft) 75 mg QAM PO 09/28/21 09:00 09/28/21 09:37 Trazodone HCl (Desyrel) 50 mg QHSP PRN PO INSOMNIA 09/25/21 23:25 09/27/21 10:40 DC 09/26/21 00:08 Trazodone HCl (Desyrel) 100 mg QHS PO 09/27/21 21:00 09/27/21 21:41 Allergies Coded Allergies: No Known Allergies (Unverified , 09/25/21) ANDIE KYLE MD Sep 28, 2021 15:54
[2021-09-29] MEDS: zolPIDEM TARTRATE 5 MG TAB PO PRN (20:22)
[2021-09-30 06:53] VITALS: BP 128/59
[2021-09-30] MEDS: SERTRALINE 100 MG TAB PO SCH (08:20)
[2021-09-30] MEDS: buPROPion **XL** TABLET 150MG (WELLBUTRIN XL) PO SCH (08:20)
--- NOTE | 2021-09-30 13:23 | MHIPNPDOC ---
[facility] Progress Note Progress Note DATE OF SERVICE: 09/30/21 HISTORY: Patient is a 21 -year-old , male, who has a history of adjustment disorder who self presented to the ED. States "having a difficult time coping with life", states has a problem with being, "I blame myself, I feel I can't do anything right, now just isabel just wanna give up on it, I don't wanna do anything, I want it done with quick". States father told him he is gonna move, states was staying at a stepmother's friend's house. States "my head's split, feels there's a reason to be alive". Denies hallucinations, p john. 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 Stressors include that he doesn't like choices he made in life including staying in [place], not joining the , feeling lonely, isolated. 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 Denies any hx of inpatient admissions. No weapons at home reportedly. States feels father is only person he is close to, "If he dies or leaves I will be alone". States depression got worse after ending a relationship 4 years ago, "has always stuck with me". Interval: Initially patient is hesitant to discuss stressors, patient reports he uses avoidance strategies to manage anxiety and mood symptoms, endorses that this has been protective in the past and that he adopted these skills while living with a friend, on further evaluation is able to understand that avoidance may make anxiety symptoms worse, and that other strategies may be employed to improve situation, including reaching out to supports, sitting with discomfort, being consistent with medication. Overall, since prior to the weekend affect appears brighter, eye contact is improved and is more engaged on evaluations, no longer perseverating with "I don't know" statements. Together briefly worked on identifying and evaluating negative thoughts. Reports tolerating medications without side effects. Sertraline was increased to 100 mg daily over the weekend. Was able to identify things he wants to work on including how he can approach moving forward with his life, where he would live, practice setting boundaries as he reports this is been an issue in the past following in his father's footsteps, agreeable to play mindfulness strategies and that these strategies may be helpful to him in regards nursing judgment or thoughts, which can be counterproductive. Patient denies overt suicidal ideations but has vague negative thoughts. VITAL SIGNS: See below. NEW TEST RESULTS: see below CURRENT MEDICATIONS: See below. MENTAL STATUS EXAMINATION: General Appearance: well groomed, hospital scubs/clothing, glasses, appears stated age, tall and thin, less withdrawn Demeanor: Less withdrawn, less guarded on further conversation Eye Contact: Less avoidant, continues at times to be looking down the ground Activity: Less slowed Behavior: poorly cooperative, loss of interests, anhedonia, withdrawn Speech: slow, low in volume, nonspontaneous, minimal Mood: " Pretty all right" Affect: Less withdrawn, no longer anhedonic, constricted, mood congruent Thought Process: Linear, logical Thought Content (Delusions): Vague suicidal ideations Thought Content (Other): phobic Thought Content (Aggressive): none reported Perception (Hallucinations): none reported Perception (Other): none reported Cognition (Impairment of): attention/concentration Cognition(Intelligence Est.): average Oriented: Awake, Alert, Oriented times three Insight: Improving Judgment: Improving Psychosis: Denies DIAGNOSES: MDD, recurrent, severe, melancholic features Insomnia Cannabis use disorder Cluster B/C traits Rule out PTSD ASSESSMENT: Patient appears to have decrease symptoms of anhedonia, melancholic depression, appears to be responding well to medication adjustments including increasing sertraline to 100 mg daily, denies any acute physical complaints or medication side effects. Continues to have vague negative thoughts and may be minimizing suicidal thinking, despite this appears to be more future oriented, less hopeless and has started to think about his plans on leaving the hospital with regards to accommodation, moving forward with his life as an independent adults, made some comments regarding individuation. Reports is tolerated Ambien, as opposed to trazodone which was less effective, reports being more energized prior to going to sleep and is able to sleep. MANAGEMENT PLAN: Continue medications, continue medications, patient aware and will take time for medications to be effective TIME SPENT: 25 minutes. Vital Signs Vital Signs Date Time Temp Pulse Resp B/P (MAP) Pulse Ox O2 Delivery O2 Flow Rate FiO2 09/30/21 06:53 99.0 60 14 128/59 (82) 98 Room Air Current Medications Current Medications Medications (Trade) Dose Ordered Sig/Beba Route PRN Reason Start Time Stop Time Status Last Admin Dose Admin Acetaminophen (Tylenol Tab) 650 mg Q6HP PRN PO HEADACHE or MILD DISCOMFORT 09/25/21 23:25 Al Hydrox/Mg Hydrox/Simethicone (Mylanta) 30 ml Q4HP PRN PO HEARTBURN/INDIGESTION 09/25/21 23:25 Bupropion HCl (Wellbutrin Xl) 150 mg QAM PO 09/26/21 09:00 09/30/21 08:20 Home Med (Home Med List Complete!) ASDIRECTED XX 09/25/21 14:10 09/25/21 14:12 DC Magnesium Hydroxide (Milk Of Magnesia) 30 ml DAILYPRN PRN PO CONSTIPATION 09/25/21 23:25 Sertraline HCl (Zoloft) 50 mg QAM PO 09/26/21 09:00 09/27/21 10:41 DC 09/27/21 08:32 Sertraline HCl (Zoloft) 75 mg QAM PO 09/28/21 09:00 09/29/21 12:23 DC 09/29/21 08:18 Sertraline HCl (Zoloft) 100 mg QAM PO 09/30/21 09:00 09/30/21 08:20 Trazodone HCl (Desyrel) 50 mg QHSP PRN PO INSOMNIA 09/25/21 23:25 09/27/21 10:40 DC 09/26/21 00:08 Trazodone HCl (Desyrel) 100 mg QHS PO 09/27/21 21:00 09/28/21 17:30 DC 09/27/21 21:41 Trazodone HCl (Desyrel) 150 mg QHS PO 09/28/21 21:00 09/29/21 13:04 DC 09/28/21 20:51 Zolpidem Tartrate (Ambien) 10 mg QHSP PRN PO INSOMNIA 09/29/21 13:05 09/29/21 20:22 Allergies Coded Allergies: No Known Allergies (Unverified , 09/25/21) ARYAN VICENTE MD Sep 30, 2021 13:23
[2021-09-30 18:00] VITALS: BP 143/65
[2021-09-30] MEDS: zolPIDEM TARTRATE 5 MG TAB PO PRN (20:16)
[2021-10-01 06:06] VITALS: BP 152/69
[2021-10-01] MEDS: SERTRALINE 100 MG TAB PO SCH (08:42)
[2021-10-01] MEDS: buPROPion **XL** TABLET 150MG (WELLBUTRIN XL) PO SCH (08:42)
[2021-10-01] MEDS ORDERED: ZOLO100T PO (09:31)
[2021-10-01] MEDS ORDERED: AMBI5TAB PO (09:31)
[2021-10-01] MEDS ORDERED: BUPR150T12 PO (09:31)
[2021-10-01] MEDS ORDERED: ZOLP10TA2 PO (10:53)
--- NOTE | 2021-10-01 12:18 | MHDSPDOC ---
[facility] Discharge Summary Discharge Summary DATE OF ADMISSION: Sep 25, 2021 at 23:21 DATE OF DISCHARGE: Oct 01, 2021 Discharge diagnoses: MDD, recurrent, severe, melancholic features Insomnia Cannabis use disorder Cluster B/C traits Reason for admission: Patient is a 21 -year-old , male, who has a history of adjustment disorder who self presented to the ED. States "having a difficult time coping with life", states has a problem with being, "I blame myself, I feel I can't do anything right, now just isabel just wanna give up on it, I don't wanna do anything, I want it done with quick". States father told him he is gonna move, states was staying at a stepmother's friend's house. States "my head's split, feels there's a reason to be alive". Denies hallucinations, paranoia. States got out of long-term recently Sep 18, was there for 4 months, states on probation for 10 years, will not discuss any details. Stressors include that he doesn't like choices he made in life including staying in [place], not joining the , feeling lonely, isolated. 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 Denies any hx of inpatient admissions. No weapons at home reportedly. States feels father is only person he is close to, "If he dies or leaves I will be alone". States depression got worse after ending a relationship 4 years ago, "has always stuck with me". Vital signs: See below Consultants involved: See medical H&P by hospitalist Treatment and progress on the unit: Patient was admitted to the [facility] on a legal status and was afforded the following treatment modalities: 1. Individual therapy 2. Group therapy 3. Medication management 4. Milieu therapy 5. Safe environment Hospital course: Patient was admitted to the [facility] on a legal status. Was medically cleared prior to coming up to the [facility]. Initially presented with melancholic depression, significant symptoms of anhedonia, insomnia, low moods that was worse in the mornings, despite situational changing and having to go to [facility] mood significantly improved after starting medications including Zoloft 100 mg p.o. daily, Wellbutrin XL 150 mg p.o. daily, was tried on trazodone but continued to have insomnia related both to initiating sleep, maintaining sleep, the on-call provider discontinue trazodone started Ambien 10 mg nightly, patient reports significant improvements in sleep on this regimen. Patient stated that despite not being able to live with father and go to [facility] he felt overall much more hopeful about his situation and happy, also reported that anxiety symptoms seemed improved. Patient found medications beneficial and tolerated them well without side effects. Denies mood, anxiety and intrusive thoughts which improved with treatment. Patient attended groups daily when available during stay. Patient symptoms improved with treatment. On day of discharge patient denied depression, anxiety, insomnia, suicidal or homicidal ideations intent or plan, hallucinations, delusions. Patient was discharged home with follow-up. Patient felt safe for discharge. Was offered continued stay on voluntary admission but refused. Discharge assessment: On today's interview patient is alert and oriented, dr morgan appropriately. Hygiene and grooming is well-kept. No longer spends majority time walking the floor and has improved eye contact. Smiles on approach and is pleasant and engaged on interview. Denies depression and anxiety. Denies suicidal homicidal ideation, intent or planning. Denies and is not observed with reshma or psychotic symptoms of delusions, hallucinations, bizarre thinking, obsessions, paranoia, ruminations, illogical thoughts, flight of ideas or having poor insight or judgment. Patient has normal mentation, declines further hospitalization of voluntary status and meets criteria for discharge today, patient encouraged to return the hospital if symptoms worsen or change and encouraged to call unit if they feel they need provider's questions to be answered or help with medications or care. States he feels ready to leave and has been thinking about going back to school to complete a computer science program. Mental status: General Appearance: well groomed, hospital scubs/clothing, glasses, appears stated age, tall and thin, less withdrawn Demeanor: calm, less guarded Eye Contact: improved Activity: Less slowed Behavior: cooperative Speech: normal volume, spontaneous Mood: "pretty good" Affect: mildly constricted, euthymic, mood congruent, appropriate, laughs and smiles at times Thought Process: Linear, logical Thought Content (Delusions): none Thought Content (Other): Denies suicidal ideations, intent or plan. Denies homicidal ideations, intent or plan Thought Content (Aggressive): none reported Perception (Hallucinations): none reported Perception (Other): none reported Cognition (Impairment of): attention/concentration Cognition(Intelligence Est.): average Oriented: Awake, Alert, Oriented times three Insight: Fair Judgment: Good Psychosis: Denies Medications on discharge: -see medication reconciliation: CSSRS on discharge: Wish to be : No nonspecific active suicidal thoughts: No lifetime attempts: 0 interrupted attempts: 0 aborted attempts: 0 preparatory acts or behavior: None Taking into consideration safety state, status, safety plan, protective factors, modifiable, non-modifiable risk factors patient is at low risk on discharge for suicide according to [facility] suicide evaluation. PLAN/FOLLOWUP ARRANGEMENTS: Follow Up Care Education Label * Mental Health Appt 1 * [facility] * Established With This Provider Yes * Therapist CHARMAINE * Date Oct 07, 2021 * Time 09:00 * Address of Clinic or Practice [address] [place] [address] * Follow Up Care Education Label * Mental Health Appt 2 * [facility] * Established With This Provider Yes * Therapist DR. FOOTE * Date Oct 29, 2021 * Time 10:00 * Address of Clinic or Practice [address] [place] [address] * Follow Up Care Education Label * Medical * Medical Follow Up [facility] * Established With This Provider No * Therapist DR. MARTÍNEZ * Date Oct 08, 2021 * Time 10:00 * Address of Clinic or Practice [address] [place] [address] * The amount of time spent in the coordination of care for this patient was francisco roximately 25 minutes. ETOH/Disorder Med Rx ETOH/DRUG DISORDER RX: Offrd @ d/c & pt refused Vital Signs/I&Os Vital Signs Date Time Temp Pulse Resp B/P (MAP) Pulse Ox O2 Delivery O2 Flow Rate FiO2 10/01/21 06:06 98.4 67 14 152/69 (96) 99 Room Air Medications Scheduled Bupropion Hcl (Bupropion Xl) 150 Mg Tab.er.24h, 150 MG PO QAM for depression, #7 Sertraline Hcl (Zoloft) 100 Mg Tablet, 100 MG PO QAM for depression, #7 Scheduled PRN Zolpidem Tartrate (Zolpidem Tartrate) 10 Mg Tablet, 10 MG PO QPMP PRN for sleep for 7 Days, #7 Allergies Coded Allergies: No Known Allergies (Unverified , 09/25/21) ARYAN VICENTE MD Oct 01, 2021 12:18
== END 2021-10-01 13:46 | disposition home or self-care (01) | DRG 751 ==
LOC: M ED 02:27 → M PSY 22:38
PROVIDERS: ADMIT Student in an Organized Health Care Education/Training Program; ATTEND Student in an Organized Health Care Education/Training Program
DX: F33.2 Major depressive disorder, recurrent severe without psychotic features (principal); G47.00 Insomnia, unspecified; F12.10 Cannabis abuse, uncomplicated; F60.89 Other specific personality disorders; R45.851 Suicidal ideations; F17.210 Nicotine dependence, cigarettes, uncomplicated; F10.10 Alcohol abuse, uncomplicated; Z59.00 Homelessness unspecified; Z20.822 Contact with and (suspected) exposure to COVID-19

== ENCOUNTER 2022-11-07 17:27 | Inpatient (IN) | payer MEDICAID, OTHER ==
[~2022-11-07 17:27] MED LIST: AMBI5TAB PO; BUPR150T12 PO; ZOLO100T PO; ZOLP10TA2 PO
[2022-11-07 19:53] LABS: HEMATOCRIT 41.8 % (42.0-52.0); HEMOGLOBIN 14.6 g/dl (13.5-17.5); MEAN CORPUSCULAR HEMOGLOBIN 31.1 pg (27.0-33.0); MEAN CORPUSCULAR HGB CONC 34.9 g/dl (32.0-36.5); MEAN CORPUSCULAR VOLUME 88.9 fl (80.0-96.0); PLATELET COUNT, AUTOMATED 233 10^3/uL (150-450); WHITE BLOOD COUNT 6.3 10^3/uL (4.0-10.0)
[2022-11-07 20:15] LABS: ETHYL ALCOHOL (ETHANOL) 0.022 % (0.000-0.010)
[2022-11-07 20:16] LABS: ACETAMINOPHEN LEVEL < 2.0 UG/ML (10.0-20.0); BILIRUBIN,DIRECT 0.2 MG/DL (<0.4); SALICYLATE LEVEL < 3.0 MG/DL (<30)
[2022-11-07 20:17] LABS: ALBUMIN 4.2 G/DL (3.2-5.2); ALKALINE PHOSPHATASE 98 U/L (46-116); ALT/SGPT 16 U/L (7.0-40); AST/SGOT 20 U/L (<34); BILIRUBIN,TOTAL 0.6 MG/DL (0.3-1.2); BLOOD UREA NITROGEN 11 MG/DL (9-23); CALCIUM LEVEL 9.4 MG/DL (8.5-10.1); CARBON DIOXIDE LEVEL 23 MMOL/L (20-31); CHLORIDE LEVEL 107 MMOL/L (98-107); CREATININE FOR GFR 0.85 MG/DL (0.70-1.30); GLOMERULAR FILTRATION RATE > 60.0 (>60); GLUCOSE, FASTING 84 MG/DL (60-100); POTASSIUM SERUM 3.9 MMOL/L (3.5-5.1); SODIUM LEVEL 140 MMOL/L (136-145)
[2022-11-07 20:19] LABS: THYROID STIMULATING HORMONE 0.796 uIU/ML (0.55-4.78)
[2022-11-07 20:22] LABS: RSV AMPLIFICATION NEGATIVE (NEGATIVE)
[2022-11-07 20:39] LABS: AMPHETAMINES LEVEL URINE NEGATIVE (NEGATIVE); BARBITURATES URINE NEGATIVE (NEGATIVE); BENZODIAZEPINES URINE NEGATIVE (NEGATIVE); COCAINE METABOLITE URINE NEGATIVE (NEGATIVE); METHADONE URINE NEGATIVE (NEGATIVE)
[2022-11-07 20:40] LABS: CANNABINOIDS URINE POSITIVE (NEGATIVE); OPIATES URINE NEGATIVE (NEGATIVE); PHENCYCLIDINE URINE NEGATIVE (NEGATIVE)
[2022-11-08] MEDS ORDERED: HOME MED LIST COMPLETE! XX SCH (09:15)
[2022-11-10] MEDS: MULTIVITAMINS/MINERALS THERAP 1 TAB PO SCH (09:00)
[2022-11-10] MEDS: NICOTINE 21MG/24HR 1 EA TRANSDERMAL TD SCH (09:00)
[2022-11-10] MEDS: THIAMINE 100 MG TAB PO SCH ×2 (09:00→21:00)
[2022-11-10] MEDS: FOLIC ACID 1MG TAB PO SCH (09:00)
[2022-11-10] MEDS ORDERED: IBUPROFEN 400MG TAB PO PRN (13:55)
[2022-11-10] MEDS ORDERED: LORazepam 2 MG TAB PO PRN (13:55)
[2022-11-10] MEDS ORDERED: diphenhydrAMINE 25MG CAP PO PRN (13:55)
[2022-11-10] MEDS ORDERED: MAALOX 30 ML SUSP *UDC PO PRN (13:55)
[2022-11-10] MEDS ORDERED: MOM 30ML SUSPENSION UDC PO PRN (13:55)
[2022-11-10 16:00] VITALS: BP 132/81
[2022-11-10] MEDS: OLANZapine ORAL DISINTEGRATING TAB 5MG PO PRN (18:34)
[2022-11-10 22:30] VITALS: BP 140/85
[2022-11-11 06:00] VITALS: BP 105/56
[2022-11-11] MEDS: NICOTINE 21MG/24HR 1 EA TRANSDERMAL TD SCH (09:00)
[2022-11-11] MEDS: FOLIC ACID 1MG TAB PO SCH ×2 (10:06→10:29)
[2022-11-11] MEDS: buPROPion **XL** TABLET 150MG (WELLBUTRIN XL) PO SCH (10:06)
[2022-11-11] MEDS: THIAMINE 100 MG TAB PO SCH ×3 (10:06→21:13)
[2022-11-11] MEDS: MULTIVITAMINS/MINERALS THERAP 1 TAB PO SCH ×2 (10:06→10:29)
[2022-11-11 18:38] VITALS: BP 138/74
[2022-11-11] MEDS: OLANZapine ORAL DISINTEGRATING TAB 5MG PO PRN (21:13)
[2022-11-11 22:10] VITALS: BP 135/86
[2022-11-12 06:10] VITALS: BP 140/71
[2022-11-12 06:39] VITALS: BP 140/71
[2022-11-12] MEDS: THIAMINE 100 MG TAB PO SCH ×2 (07:58→21:06)
[2022-11-12] MEDS: MULTIVITAMINS/MINERALS THERAP 1 TAB PO SCH (07:58)
[2022-11-12] MEDS: FOLIC ACID 1MG TAB PO SCH (07:58)
[2022-11-12] MEDS: NICOTINE 21MG/24HR 1 EA TRANSDERMAL TD SCH (07:59)
[2022-11-12] MEDS: buPROPion **XL** TABLET 150MG (WELLBUTRIN XL) PO SCH (07:59)
[2022-11-12 14:30] VITALS: BP 134/73
[2022-11-12 19:06] VITALS: BP 140/90
[2022-11-12] MEDS ORDERED: OLANZapine ORAL DISINTEGRATING TAB 5MG PO ONE (20:50)
[2022-11-12] MEDS ORDERED: diphenhydrAMINE 50MG CAP PO ONE (20:50)
[2022-11-12 21:15] VITALS: BP 162/98
[2022-11-13 05:47] VITALS: BP 102/55
[2022-11-13 06:34] VITALS: BP 102/55
[2022-11-13] MEDS: NICOTINE 21MG/24HR 1 EA TRANSDERMAL TD SCH (09:00)
[2022-11-13] MEDS: FOLIC ACID 1MG TAB PO SCH (09:32)
[2022-11-13] MEDS: MULTIVITAMINS/MINERALS THERAP 1 TAB PO SCH (09:32)
[2022-11-13] MEDS: buPROPion **XL** TABLET 150MG (WELLBUTRIN XL) PO SCH (09:32)
[2022-11-13 14:30] VITALS: BP 122/88
[2022-11-13] MEDS ORDERED: BUPR150T12 PO (14:37)
[2022-11-13] MEDS ORDERED: NICO21PAT TD (14:37)
[2022-11-13 19:09] VITALS: BP 131/79
[2022-11-13 23:08] VITALS: BP 128/80
[2022-11-14 06:53] VITALS: BP 147/70
[2022-11-14] MEDS: NICOTINE 21MG/24HR 1 EA TRANSDERMAL TD SCH (09:00)
[2022-11-14] MEDS: MULTIVITAMINS/MINERALS THERAP 1 TAB PO SCH (09:18)
[2022-11-14] MEDS: FOLIC ACID 1MG TAB PO SCH (09:18)
[2022-11-14] MEDS: buPROPion **XL** TABLET 150MG (WELLBUTRIN XL) PO SCH (09:18)
== END 2022-11-14 10:25 | disposition home or self-care (01) | DRG 751 ==
LOC: M ED 17:27 → M ED INP 11-10 13:51 → M PSY 11-10 15:34
PROVIDERS: ADMIT Student in an Organized Health Care Education/Training Program; ATTEND Psychiatry & Neurology Psychiatry
DX: F32.0 Major depressive disorder, single episode, mild (principal); F41.9 Anxiety disorder, unspecified; F17.210 Nicotine dependence, cigarettes, uncomplicated; R45.851 Suicidal ideations; G47.00 Insomnia, unspecified; Z62.812 Personal history of neglect in childhood; Z20.822 Contact with and (suspected) exposure to COVID-19

== ENCOUNTER 2023-03-03 23:34 | Inpatient (IN) | payer MEDICAID, OTHER ==
[~2023-03-03] VITALS: Ht 185.4 cm; Wt 68.9 kg
[~2023-03-03 23:34] MED LIST changes: +NICO21PAT TD
[2023-03-04] MEDS: NICOTINE 14 MG/24 HR TRANSDERMAL TD SCH (09:00)
[2023-03-04 09:23] LABS: HEMOGLOBIN 14.7 g/dl (13.5-17.5); MEAN CORPUSCULAR HEMOGLOBIN 31.3 pg (27.0-33.0); MEAN CORPUSCULAR VOLUME 89.6 fl (80.0-96.0); PLATELET COUNT, AUTOMATED 224 10^3/uL (150-450); RED BLOOD COUNT 4.69 10^6/uL (4.30-6.10); WHITE BLOOD COUNT 2.9 10^3/uL (4.0-10.0)
[2023-03-04 09:50] LABS: ETHYL ALCOHOL (ETHANOL) 0.004 % (0.000-0.010)
[2023-03-04 09:51] LABS: ACETAMINOPHEN LEVEL < 2.0 UG/ML (10.0-20.0); SALICYLATE LEVEL < 3.0 MG/DL (<30)
[2023-03-04 09:52] LABS: ALBUMIN 4.2 G/DL (3.2-5.2); ALKALINE PHOSPHATASE 119 U/L (46-116); ALT/SGPT 17 U/L (7.0-40); AST/SGOT 24 U/L (<34); BILIRUBIN,DIRECT 0.4 MG/DL (<0.4); BILIRUBIN,TOTAL 0.9 MG/DL (0.3-1.2); BLOOD UREA NITROGEN 15 MG/DL (9-23); CALCIUM LEVEL 9.2 MG/DL (8.5-10.1); CARBON DIOXIDE LEVEL 29 MMOL/L (20-31); CHLORIDE LEVEL 104 MMOL/L (98-107); CREATININE FOR GFR 0.91 MG/DL (0.70-1.30); GLOMERULAR FILTRATION RATE > 60.0 (>60); GLUCOSE, FASTING 88 MG/DL (60-100); POTASSIUM SERUM 4.2 MMOL/L (3.5-5.1); SODIUM LEVEL 139 MMOL/L (136-145); TOTAL PROTEIN 6.9 G/DL (5.7-8.2)
[2023-03-04 10:25] LABS: AMPHETAMINES LEVEL URINE NEGATIVE (NEGATIVE); BARBITURATES URINE NEGATIVE (NEGATIVE); BENZODIAZEPINES URINE NEGATIVE (NEGATIVE); COCAINE METABOLITE URINE NEGATIVE (NEGATIVE); METHADONE URINE NEGATIVE (NEGATIVE); OPIATES URINE NEGATIVE (NEGATIVE); PHENCYCLIDINE URINE NEGATIVE (NEGATIVE)
[2023-03-04 10:27] LABS: CANNABINOIDS URINE POSITIVE (NEGATIVE)
[2023-03-04] MEDS ORDERED: IBUPROFEN 400MG TAB PO PRN (13:15)
[2023-03-04] MEDS ORDERED: MOM 30ML SUSPENSION UDC PO PRN (13:15)
[2023-03-04] MEDS ORDERED: MAALOX 30 ML SUSP *UDC PO PRN (13:15)
[2023-03-04] MEDS ORDERED: HOME MED LIST COMPLETE! XX SCH (14:05)
[2023-03-04 17:58] VITALS: BP 113/65
[2023-03-04] MEDS: traZODone 50 MG TAB PO PRN (21:17)
[2023-03-05 06:43] VITALS: BP 161/81
[2023-03-05] MEDS ORDERED: NICOTINE 21MG/24HR 1 EA TRANSDERMAL TD SCH (09:00)
[2023-03-05] MEDS ORDERED: NICOTINE 7 MG/24 HR TRANSDERMAL TD SCH (09:00)
[2023-03-05] MEDS ORDERED: INFLUENZA QUADRIVALENT PF VACCINE 0.5ML SYRINGE IM.IMMUN ONE (09:00)
[2023-03-05] MEDS: NICOTINE 14 MG/24 HR TRANSDERMAL TD SCH (11:28)
[2023-03-05 17:37] VITALS: BP 133/75
[2023-03-05] MEDS: traZODone 50 MG TAB PO PRN (21:09)
[2023-03-05] MEDS: OLANZapine 5 MG TAB PO SCH (21:09)
[2023-03-06 06:46] VITALS: BP 135/86
[2023-03-06] MEDS: NICOTINE 14 MG/24 HR TRANSDERMAL TD SCH (08:46)
[2023-03-06 18:14] VITALS: BP 121/65
[2023-03-06] MEDS: OLANZapine 5 MG TAB PO SCH (20:24)
[2023-03-06] MEDS: traZODone 50 MG TAB PO PRN (20:24)
[2023-03-07 06:17] VITALS: BP 123/59
[2023-03-07] MEDS: NICOTINE 14 MG/24 HR TRANSDERMAL TD SCH (08:35)
[2023-03-07 18:00] VITALS: BP 147/81
[2023-03-07] MEDS: OLANZapine 5 MG TAB PO SCH (21:24)
[2023-03-07] MEDS: traZODone 50 MG TAB PO PRN (21:24)
[2023-03-08 06:07] VITALS: BP 139/61
[2023-03-08] MEDS: NICOTINE 14 MG/24 HR TRANSDERMAL TD SCH ×2 (08:51→13:45)
[2023-03-08 19:09] VITALS: BP 138/82
[2023-03-08] MEDS: traZODone 50 MG TAB PO PRN (21:24)
[2023-03-08] MEDS: OLANZapine 5 MG TAB PO SCH (21:24)
[2023-03-09 07:14] VITALS: BP 119/65
[2023-03-09] MEDS: NICOTINE 14 MG/24 HR TRANSDERMAL TD SCH (09:00)
[2023-03-09] MEDS: OLANZapine 5 MG TAB PO SCH ×2 (10:01→20:52)
[2023-03-09] MEDS: traZODone 50 MG TAB PO PRN (20:52)
[2023-03-10 06:51] VITALS: BP 140/63
[2023-03-10] MEDS: NICOTINE 14 MG/24 HR TRANSDERMAL TD SCH (08:41)
[2023-03-10] MEDS: OLANZapine 5 MG TAB PO SCH ×2 (08:41→21:24)
[2023-03-10 10:10] LABS: CHOLESTEROL RISK RATIO 2.17 (<5); HDL CHOLESTEROL 58.3 MG/DL (>40); LDL CHOLESTEROL 25.5 MG/DL (<100); NON-HDL-C 68.7 MG/DL
[2023-03-10 16:53] VITALS: BP 132/67
[2023-03-10] MEDS: traZODone 50 MG TAB PO PRN (21:24)
[2023-03-11 06:35] VITALS: BP 168/78
[2023-03-11] MEDS: NICOTINE 14 MG/24 HR TRANSDERMAL TD SCH (08:26)
[2023-03-11] MEDS: OLANZapine 5 MG TAB PO SCH (08:26)
[2023-03-11] MEDS ORDERED: TRAZ-252 PO (12:23)
[2023-03-11] MEDS ORDERED: OLAN1TAB16 PO ×2 (12:23)
== END 2023-03-11 15:26 | disposition home or self-care (01) | DRG 751 ==
LOC: M ED 23:34 → M ED INP 03-04 13:18 → M PSY 03-04 17:14
PROVIDERS: ADMIT Student in an Organized Health Care Education/Training Program; ATTEND Student in an Organized Health Care Education/Training Program
DX: F29 Unspecified psychosis not due to a substance or known physiological condition (principal); F20.9 Schizophrenia, unspecified; Z59.02 Unsheltered homelessness; Z62.810 Personal history of physical and sexual abuse in childhood; Z62.811 Personal history of psychological abuse in childhood; F17.210 Nicotine dependence, cigarettes, uncomplicated; F10.10 Alcohol abuse, uncomplicated; F12.10 Cannabis abuse, uncomplicated

== ENCOUNTER 2023-05-07 22:58 | Inpatient (IN) | payer MEDICAID, OTHER ==
[~2023-05-07] VITALS: Ht 175.3 cm; Wt 73.3 kg
[~2023-05-07 22:58] MED LIST changes: +OLAN1TAB16 PO; +TRAZ-252 PO
[2023-05-08 03:51] LABS: HEMATOCRIT 43.6 % (42.0-52.0); HEMOGLOBIN 15.1 g/dl (13.5-17.5); MEAN CORPUSCULAR HEMOGLOBIN 30.8 pg (27.0-33.0); MEAN CORPUSCULAR HGB CONC 34.6 g/dl (32.0-36.5); MEAN CORPUSCULAR VOLUME 88.8 fl (80.0-96.0); PLATELET COUNT, AUTOMATED 231 10^3/uL (150-450); RED BLOOD COUNT 4.91 10^6/uL (4.30-6.10); WHITE BLOOD COUNT 5.3 10^3/uL (4.0-10.0)
[2023-05-08 04:10] LABS: AMPHETAMINES LEVEL URINE NEGATIVE (NEGATIVE); BARBITURATES URINE NEGATIVE (NEGATIVE); BENZODIAZEPINES URINE NEGATIVE (NEGATIVE); COCAINE METABOLITE URINE NEGATIVE (NEGATIVE); METHADONE URINE NEGATIVE (NEGATIVE); OPIATES URINE NEGATIVE (NEGATIVE)
[2023-05-08 04:11] LABS: PHENCYCLIDINE URINE NEGATIVE (NEGATIVE)
[2023-05-08 04:12] LABS: ETHYL ALCOHOL (ETHANOL) < 0.003 % (0.000-0.010)
[2023-05-08 04:14] LABS: ACETAMINOPHEN LEVEL < 2.0 UG/ML (10.0-20.0); ALBUMIN 4.5 G/DL (3.2-5.2); ALKALINE PHOSPHATASE 114 U/L (46-116); ALT/SGPT 18 U/L (7.0-40); AST/SGOT 21 U/L (<34); BILIRUBIN,DIRECT 0.3 MG/DL (<0.4); BILIRUBIN,TOTAL 1.1 MG/DL (0.3-1.2); BLOOD UREA NITROGEN 27 MG/DL (9-23); CALCIUM LEVEL 9.2 MG/DL (8.5-10.1); CARBON DIOXIDE LEVEL 27 MMOL/L (20-31); CHLORIDE LEVEL 103 MMOL/L (98-107); CREATININE FOR GFR 1.06 MG/DL (0.70-1.30); GLOMERULAR FILTRATION RATE > 60.0 (>60); GLUCOSE, FASTING 85 MG/DL (60-100); POTASSIUM SERUM 3.9 MMOL/L (3.5-5.1); SALICYLATE LEVEL < 3.0 MG/DL (<30); SODIUM LEVEL 137 MMOL/L (136-145); TOTAL PROTEIN 7.3 G/DL (5.7-8.2)
[2023-05-08 04:16] LABS: THYROID STIMULATING HORMONE 1.147 uIU/ML (0.55-4.78)
[2023-05-08 04:17] LABS: CANNABINOIDS URINE POSITIVE (NEGATIVE)
[2023-05-08] MEDS ORDERED: OLAN1TAB16 PO (06:27)
[2023-05-08] MEDS ORDERED: TRAZ-252 PO (06:27)
[2023-05-08] MEDS ORDERED: HOME MED LIST COMPLETE! XX SCH (06:30)
[2023-05-08] MEDS ORDERED: OLANZapine ORAL DISINTEGRATING TAB 5MG PO PRN (12:20)
[2023-05-08] MEDS ORDERED: traZODone 50 MG TAB PO PRN (12:20)
[2023-05-08] MEDS ORDERED: ACETAMINOPHEN TAB 650MG DOSE (2X325MG) PO PRN (12:20)
[2023-05-08] MEDS ORDERED: IBUPROFEN 400MG TAB PO PRN (12:20)
[2023-05-08] MEDS ORDERED: diphenhydrAMINE 25MG CAP PO PRN (12:20)
[2023-05-08] MEDS ORDERED: MOM 30ML SUSPENSION UDC PO PRN (12:20)
[2023-05-08] MEDS ORDERED: MAALOX 30 ML SUSP *UDC PO PRN (12:20)
[2023-05-08] MEDS ORDERED: LORazepam 2 MG TAB PO PRN (12:20)
[2023-05-08 14:00] VITALS: BP_SYST 148; BP_SYST 149; BP_DIAS 68
[2023-05-08] MEDS: THIAMINE 100 MG TAB PO SCH ×2 (15:12→22:13)
[2023-05-08] MEDS: FOLIC ACID 1MG TAB PO SCH (15:12)
[2023-05-08] MEDS: MULTIVITAMINS/MINERALS THERAP 1 TAB PO SCH (15:12)
[2023-05-08] MEDS: NICOTINE 21MG/24HR 1 EA TRANSDERMAL TD SCH (15:13)
[2023-05-08 17:50] VITALS: BP 149/68; TEMP 98.2; O2SAT 98
[2023-05-08] MEDS ORDERED: OLANZapine 5 MG TAB PO SCH (21:00)
[2023-05-08] MEDS: PALIPERIDONE 3MG ER TAB (INVEGA) PO SCH (22:13)
[2023-05-09 05:40] VITALS: BP 119/79
[2023-05-09 06:28] VITALS: BP 122/67; TEMP 97.5; O2SAT 99
[2023-05-09 07:05] LABS: CHOLESTEROL RISK RATIO 2.83 (<5); HDL CHOLESTEROL 53.6 MG/DL (>40); LDL CHOLESTEROL 84.4 MG/DL (<100); NON-HDL-C 98.4 MG/DL
[2023-05-09] MEDS: MULTIVITAMINS/MINERALS THERAP 1 TAB PO SCH (09:33)
[2023-05-09] MEDS: THIAMINE 100 MG TAB PO SCH ×2 (09:33→20:52)
[2023-05-09] MEDS: FOLIC ACID 1MG TAB PO SCH (09:33)
[2023-05-09] MEDS: PALIPERIDONE 3MG ER TAB (INVEGA) PO SCH ×2 (09:33→20:51)
[2023-05-09] MEDS: NICOTINE 21MG/24HR 1 EA TRANSDERMAL TD SCH (09:34)
[2023-05-09 16:11] VITALS: BP 132/80; TEMP 98.2; O2SAT 100
[2023-05-09] MEDS: traZODone 50 MG TAB PO PRN (20:51)
[2023-05-10 06:29] VITALS: BP 130/60; TEMP 98.3; O2SAT 98
[2023-05-10] MEDS: PALIPERIDONE 3MG ER TAB (INVEGA) PO SCH ×2 (09:29→21:18)
[2023-05-10] MEDS: MULTIVITAMINS/MINERALS THERAP 1 TAB PO SCH (09:30)
[2023-05-10] MEDS: FOLIC ACID 1MG TAB PO SCH (09:30)
[2023-05-10] MEDS: THIAMINE 100 MG TAB PO SCH ×2 (09:30→20:26)
[2023-05-10] MEDS: NICOTINE 21MG/24HR 1 EA TRANSDERMAL TD SCH (09:31)
[2023-05-10 17:33] VITALS: BP 150/88; TEMP 98.8
[2023-05-10] MEDS: traZODone 50 MG TAB PO PRN (20:26)
[2023-05-11 06:07] VITALS: BP 137/65; TEMP 97.7; O2SAT 98
[2023-05-11] MEDS: MULTIVITAMINS/MINERALS THERAP 1 TAB PO SCH (09:47)
[2023-05-11] MEDS: FOLIC ACID 1MG TAB PO SCH (09:47)
[2023-05-11] MEDS: PALIPERIDONE 3MG ER TAB (INVEGA) PO SCH ×2 (09:47→20:53)
[2023-05-11] MEDS: NICOTINE 21MG/24HR 1 EA TRANSDERMAL TD SCH (09:48)
[2023-05-11] MEDS ORDERED: PALIPERIDONE PAL 234MG/1.5ML INJ (INVEGA)(FREE PSY INPT ONLY) IM ONE (12:00)
[2023-05-11 14:09] VITALS: BP 135/87
[2023-05-11 17:28] VITALS: BP 134/91; TEMP 98.1; O2SAT 98
[2023-05-11] MEDS: traZODone 50 MG TAB PO PRN (20:53)
[2023-05-11 21:15] VITALS: BP 134/91
[2023-05-12 06:05] VITALS: BP 118/57; TEMP 97.7; O2SAT 98
[2023-05-12] MEDS: PALIPERIDONE 3MG ER TAB (INVEGA) PO SCH ×2 (09:01→20:14)
[2023-05-12] MEDS: MULTIVITAMINS/MINERALS THERAP 1 TAB PO SCH (09:01)
[2023-05-12] MEDS: FOLIC ACID 1MG TAB PO SCH (09:01)
[2023-05-12] MEDS: NICOTINE 21MG/24HR 1 EA TRANSDERMAL TD SCH (09:02)
[2023-05-12 18:17] VITALS: BP 143/91; TEMP 97.6; O2SAT 98
[2023-05-12] MEDS: traZODone 50 MG TAB PO PRN (20:14)
[2023-05-12] MEDS: ERYTHROMYCIN OPHTH OINT OD SCH (21:10)
[2023-05-13 06:15] VITALS: BP 124/63; TEMP 97.9; O2SAT 100
[2023-05-13] MEDS ORDERED: BENZTROPINE 1 MG TAB PO PRN (08:20)
[2023-05-13] MEDS: FOLIC ACID 1MG TAB PO SCH (09:33)
[2023-05-13] MEDS: MULTIVITAMINS/MINERALS THERAP 1 TAB PO SCH (09:33)
[2023-05-13] MEDS: PALIPERIDONE 3MG ER TAB (INVEGA) PO SCH ×2 (09:33→20:50)
[2023-05-13] MEDS: NICOTINE 21MG/24HR 1 EA TRANSDERMAL TD SCH (09:34)
[2023-05-13] MEDS: ERYTHROMYCIN OPHTH OINT OD SCH ×3 (10:42→20:50)
[2023-05-13 17:44] VITALS: BP 137/73; TEMP 98; O2SAT 100
[2023-05-13] MEDS: traZODone 50 MG TAB PO PRN (20:51)
[2023-05-13] MEDS ORDERED: DIVALPROEX 250MG *ER* TAB PO SCH (21:00)
[2023-05-14 06:38] VITALS: BP 124/60; TEMP 97.2; O2SAT 98
[2023-05-14] MEDS: ERYTHROMYCIN OPHTH OINT OD SCH (08:26)
[2023-05-14] MEDS: MULTIVITAMINS/MINERALS THERAP 1 TAB PO SCH (08:26)
[2023-05-14] MEDS: FOLIC ACID 1MG TAB PO SCH (08:26)
[2023-05-14] MEDS: PALIPERIDONE 3MG ER TAB (INVEGA) PO SCH (08:27)
[2023-05-14] MEDS: NICOTINE 21MG/24HR 1 EA TRANSDERMAL TD SCH (08:29)
[2023-05-14] MEDS ORDERED: INVE234I IM (11:19)
[2023-05-14] MEDS ORDERED: NICO21PAT TD (11:19)
[2023-05-14] MEDS ORDERED: PALI1TAB2 PO (11:19)
[2023-05-14] MEDS ORDERED: DEPA250T2 PO (11:19)
[2023-05-14] MEDS ORDERED: PALIPERIDONE PAL 156MG/1ML INJ(INVEGA)(FREE PSY INPT ONLY) IM ONE (13:00)
== END 2023-05-14 13:14 | disposition home or self-care (01) | DRG 751 ==
LOC: M ED 22:58 → M ED INP 05-08 12:19 → M PSY 05-08 17:01
PROVIDERS: ADMIT Student in an Organized Health Care Education/Training Program; ATTEND Student in an Organized Health Care Education/Training Program
DX: F29 Unspecified psychosis not due to a substance or known physiological condition (principal); F20.9 Schizophrenia, unspecified; R45.851 Suicidal ideations; F12.159 Cannabis abuse with psychotic disorder, unspecified; F17.210 Nicotine dependence, cigarettes, uncomplicated; F15.10 Other stimulant abuse, uncomplicated; F16.10 Hallucinogen abuse, uncomplicated; F10.10 Alcohol abuse, uncomplicated; F14.10 Cocaine abuse, uncomplicated; F43.10 Post-traumatic stress disorder, unspecified; Z56.0 Unemployment, unspecified; Z91.199 Patient's noncompliance with other medical treatment and regimen due to unspecified reason; Z91.128 Patient's intentional underdosing of medication regimen for other reason; Z62.812 Personal history of neglect in childhood; Z79.899 Other long term (current) drug therapy

== ENCOUNTER 2023-05-19 15:22 | Inpatient (IN) | payer MEDICAID, OTHER ==
[~2023-05-19] VITALS: Ht 177.8 cm; Wt 73.1 kg
[~2023-05-19 15:22] MED LIST changes: +DEPA250T2 PO; +INVE234I IM; +PALI1TAB2 PO
[2023-05-19 17:02] LABS: HEMATOCRIT 38.9 % (42.0-52.0); HEMOGLOBIN 13.5 g/dl (13.5-17.5); MEAN CORPUSCULAR HEMOGLOBIN 30.3 pg (27.0-33.0); MEAN CORPUSCULAR HGB CONC 34.7 g/dl (32.0-36.5); MEAN CORPUSCULAR VOLUME 87.4 fl (80.0-96.0); PLATELET COUNT, AUTOMATED 236 10^3/uL (150-450); RED BLOOD COUNT 4.45 10^6/uL (4.30-6.10); WHITE BLOOD COUNT 5.2 10^3/uL (4.0-10.0)
[2023-05-19 17:26] LABS: AMPHETAMINES LEVEL URINE NEGATIVE (NEGATIVE); BARBITURATES URINE NEGATIVE (NEGATIVE); BENZODIAZEPINES URINE NEGATIVE (NEGATIVE); METHADONE URINE NEGATIVE (NEGATIVE); OPIATES URINE NEGATIVE (NEGATIVE); PHENCYCLIDINE URINE NEGATIVE (NEGATIVE)
[2023-05-19 17:28] LABS: ETHYL ALCOHOL (ETHANOL) 0.015 % (0.000-0.010)
[2023-05-19 17:30] LABS: ACETAMINOPHEN LEVEL < 2.0 UG/ML (10.0-20.0); ALBUMIN 3.9 G/DL (3.2-5.2); ALKALINE PHOSPHATASE 99 U/L (46-116); ALT/SGPT 12 U/L (7.0-40); AST/SGOT 10 U/L (<34); BILIRUBIN,DIRECT 0.1 MG/DL (<0.4); BILIRUBIN,TOTAL 0.4 MG/DL (0.3-1.2); BLOOD UREA NITROGEN 13 MG/DL (9-23); CALCIUM LEVEL 8.8 MG/DL (8.5-10.1); CARBON DIOXIDE LEVEL 24 MMOL/L (20-31); CHLORIDE LEVEL 104 MMOL/L (98-107); CREATININE FOR GFR 0.88 MG/DL (0.70-1.30); GLOMERULAR FILTRATION RATE > 60.0 (>60); GLUCOSE, FASTING 91 MG/DL (60-100); SALICYLATE LEVEL < 3.0 MG/DL (<30); SODIUM LEVEL 140 MMOL/L (136-145); TOTAL PROTEIN 6.4 G/DL (5.7-8.2)
[2023-05-19 17:31] LABS: CANNABINOIDS URINE POSITIVE (NEGATIVE); COCAINE METABOLITE URINE POSITIVE (NEGATIVE)
[2023-05-19 17:32] LABS: THYROID STIMULATING HORMONE 0.324 uIU/ML (0.55-4.78)
[2023-05-19] MEDS ORDERED: OLAN1TAB16 PO (22:14)
[2023-05-19] MEDS ORDERED: HOME MED LIST COMPLETE! XX SCH (22:15)
[2023-05-20] MEDS ORDERED: OLANZapine ORAL DISINTEGRATING TAB 5MG PO PRN (13:00)
[2023-05-20] MEDS ORDERED: MOM 30ML SUSPENSION UDC PO PRN (13:00)
[2023-05-20] MEDS ORDERED: ACETAMINOPHEN TAB 650MG DOSE (2X325MG) PO PRN (13:00)
[2023-05-20] MEDS ORDERED: MAALOX 30 ML SUSP *UDC PO PRN (13:00)
[2023-05-20] MEDS ORDERED: IBUPROFEN 400MG TAB PO PRN (13:00)
[2023-05-20 14:52] VITALS: BP 132/82; O2SAT 97
[2023-05-20] MEDS: traZODone 50 MG TAB PO PRN (21:27)
[2023-05-21 06:16] VITALS: BP 131/60; TEMP 97.3; O2SAT 100
[2023-05-21] MEDS: PALIPERIDONE 6MG ER TAB (INVEGA) PO SCH (10:35)
[2023-05-21] MEDS: diphenhydrAMINE 25MG CAP PO PRN (12:53)
[2023-05-21] MEDS ORDERED: LORazepam 2 MG TAB PO PRN (12:55)
[2023-05-21 13:30] LABS: FREE T4 0.95 NG/DL (0.89-1.76)
[2023-05-21 14:00] VITALS: BP 148/70
[2023-05-21] MEDS: FOLIC ACID 1MG TAB PO SCH (14:00)
[2023-05-21] MEDS: THIAMINE 100 MG TAB PO SCH ×2 (14:00→20:34)
[2023-05-21] MEDS: MULTIVITAMINS/MINERALS THERAP 1 TAB PO SCH (14:00)
[2023-05-21 17:31] VITALS: BP 148/70; TEMP 97.8; O2SAT 97
[2023-05-21] MEDS: traZODone 50 MG TAB PO PRN (20:34)
[2023-05-21] MEDS ORDERED: DIVALPROEX 250MG *ER* TAB PO SCH (21:00)
[2023-05-21 22:02] VITALS: BP 131/77
[2023-05-22 06:19] VITALS: BP 134/67
[2023-05-22 06:21] VITALS: BP 134/67; TEMP 97; O2SAT 100
[2023-05-22] MEDS: FOLIC ACID 1MG TAB PO SCH (09:43)
[2023-05-22] MEDS: diphenhydrAMINE 25MG CAP PO PRN (09:43)
[2023-05-22] MEDS: THIAMINE 100 MG TAB PO SCH (09:43)
[2023-05-22] MEDS: PALIPERIDONE 6MG ER TAB (INVEGA) PO SCH (09:43)
[2023-05-22] MEDS: MULTIVITAMINS/MINERALS THERAP 1 TAB PO SCH (09:43)
[2023-05-22] MEDS ORDERED: OLAN5ZYD PO (12:19)
[2023-05-22] MEDS ORDERED: DEPA250T2 PO (12:19)
[2023-05-22] MEDS ORDERED: TRAZ-252 PO (12:19)
[2023-05-22] MEDS ORDERED: PALI1TAB3 PO (12:19)
[2023-05-22 14:00] VITALS: BP 148/80
[2023-05-22] MEDS ORDERED: DIVALPROEX 500MG *ER* TAB PO SCH (21:00)
== END 2023-05-22 15:44 | disposition home or self-care (01) | DRG 751 ==
LOC: M ED 15:22 → M ED INP 05-20 13:00 → M PSY 05-20 14:46
PROVIDERS: ADMIT Student in an Organized Health Care Education/Training Program; ATTEND Student in an Organized Health Care Education/Training Program
DX: F29 Unspecified psychosis not due to a substance or known physiological condition (principal); F10.251 Alcohol dependence with alcohol-induced psychotic disorder with hallucinations; F20.9 Schizophrenia, unspecified; F12.151 Cannabis abuse with psychotic disorder with hallucinations; F16.10 Hallucinogen abuse, uncomplicated; F15.10 Other stimulant abuse, uncomplicated; F10.229 Alcohol dependence with intoxication, unspecified; F14.10 Cocaine abuse, uncomplicated; F17.210 Nicotine dependence, cigarettes, uncomplicated; Z79.899 Other long term (current) drug therapy; Z56.0 Unemployment, unspecified; Z59.00 Homelessness unspecified; Z91.148 Patient's other noncompliance with medication regimen for other reason

== ENCOUNTER 2023-07-24 15:13 | Inpatient (IN) | payer MEDICAID, OTHER, SELFPAY ==
[~2023-07-24] VITALS: Ht 180.3 cm; Wt 72.7 kg
[~2023-07-24 15:13] MED LIST changes: +OLAN5ZYD PO; +PALI1TAB3 PO
[2023-07-24 17:10] LABS: AMPHETAMINES LEVEL URINE NEGATIVE (NEGATIVE); BARBITURATES URINE NEGATIVE (NEGATIVE); BENZODIAZEPINES URINE NEGATIVE (NEGATIVE); COCAINE METABOLITE URINE NEGATIVE (NEGATIVE); METHADONE URINE NEGATIVE (NEGATIVE); OPIATES URINE NEGATIVE (NEGATIVE); PHENCYCLIDINE URINE NEGATIVE (NEGATIVE)
[2023-07-24 17:11] LABS: CANNABINOIDS URINE POSITIVE (NEGATIVE)
[2023-07-24 17:12] LABS: ETHYL ALCOHOL (ETHANOL) < 0.003 % (0.000-0.010)
[2023-07-24 17:13] LABS: ACETAMINOPHEN LEVEL < 2.0 UG/ML (10.0-20.0)
[2023-07-24 17:14] LABS: ALBUMIN 4.1 G/DL (3.2-5.2); ALKALINE PHOSPHATASE 94 U/L (46-116); ALT/SGPT 23 U/L (7.0-40); AST/SGOT 17 U/L (<34); BILIRUBIN,DIRECT 0.3 MG/DL (<0.4); BILIRUBIN,TOTAL 0.7 MG/DL (0.3-1.2); BLOOD UREA NITROGEN 15 MG/DL (9-23); CARBON DIOXIDE LEVEL 25 MMOL/L (20-31); CHLORIDE LEVEL 108 MMOL/L (98-107); CREATININE FOR GFR 0.96 MG/DL (0.70-1.30); GLOMERULAR FILTRATION RATE > 60.0 (>60); GLUCOSE, FASTING 112 MG/DL (60-100); POTASSIUM SERUM 3.7 MMOL/L (3.5-5.1); SALICYLATE LEVEL < 3.0 MG/DL (<30); SODIUM LEVEL 141 MMOL/L (136-145); TOTAL PROTEIN 6.8 G/DL (5.7-8.2)
[2023-07-24 17:16] LABS: THYROID STIMULATING HORMONE 0.992 uIU/ML (0.55-4.78)
[2023-07-24 17:17] LABS: HEMATOCRIT 40.8 % (42.0-52.0); HEMOGLOBIN 14.5 g/dl (13.5-17.5); MEAN CORPUSCULAR HEMOGLOBIN 30.7 pg (27.0-33.0); MEAN CORPUSCULAR HGB CONC 35.5 g/dl (32.0-36.5); MEAN CORPUSCULAR VOLUME 86.3 fl (80.0-96.0); PLATELET COUNT, AUTOMATED 225 10^3/uL (150-450); RED BLOOD COUNT 4.73 10^6/uL (4.30-6.10); WHITE BLOOD COUNT 3.6 10^3/uL (4.0-10.0)
[2023-07-24] MEDS ORDERED: DIVA250T7 PO (21:07)
[2023-07-24] MEDS ORDERED: HOME MED LIST COMPLETE! XX SCH (21:10)
[2023-07-24] MEDS ORDERED: ACETAMINOPHEN TAB 650MG DOSE (2X325MG) PO PRN (22:25)
[2023-07-24] MEDS ORDERED: MOM 30ML SUSPENSION UDC PO PRN (22:25)
[2023-07-24] MEDS ORDERED: MAALOX 30 ML SUSP *UDC PO PRN (22:25)
[2023-07-24] MEDS ORDERED: IBUPROFEN 400MG TAB PO PRN (22:25)
[2023-07-24] MEDS ORDERED: diphenhydrAMINE 25MG CAP PO PRN (22:25)
[2023-07-24 23:41] VITALS: BP 118/75; TEMP 97.2; O2SAT 98
[2023-07-25 06:12] VITALS: BP 128/71; TEMP 98.6; O2SAT 98
[2023-07-25] MEDS ORDERED: SENOKOT S TAB PO PRN (07:55)
[2023-07-25] MEDS: NICOTINE 21MG/24HR 1 EA TRANSDERMAL TD PRN (09:02)
[2023-07-25] MEDS: hydrOXYzine 50 MG TAB PO PRN (17:10)
[2023-07-25 18:05] VITALS: BP 118/73; TEMP 97.3; O2SAT 98
[2023-07-25] MEDS: traZODone 50 MG TAB PO PRN (20:06)
[2023-07-25] MEDS: MIRTAZAPINE 15 MG TAB PO SCH (20:06)
[2023-07-25] MEDS: VALPROIC ACID 250MG CAP PO SCH (20:06)
[2023-07-26 06:35] VITALS: BP 122/59; TEMP 98.7; O2SAT 98
[2023-07-26] MEDS: NICOTINE 21MG/24HR 1 EA TRANSDERMAL TD PRN (09:45)
[2023-07-26] MEDS: VALPROIC ACID 250MG CAP PO SCH ×2 (09:45→20:12)
[2023-07-26] MEDS: hydrOXYzine 50 MG TAB PO PRN (10:32)
[2023-07-26] MEDS: OLANZapine ORAL DISINTEGRATING TAB 5MG PO PRN (13:26)
[2023-07-26 18:25] VITALS: BP 119/77; TEMP 98.3; O2SAT 100
[2023-07-26] MEDS: MIRTAZAPINE 15 MG TAB PO SCH (20:11)
[2023-07-27 06:26] VITALS: BP 132/68; TEMP 98; O2SAT 96
[2023-07-27] MEDS: VALPROIC ACID 250MG CAP PO SCH ×2 (09:03→20:29)
[2023-07-27 12:54] VITALS: BP 132/68; TEMP 98; O2SAT 96
[2023-07-27 17:54] VITALS: BP 111/58; TEMP 98.6; O2SAT 97
[2023-07-27] MEDS: MIRTAZAPINE 15 MG TAB PO SCH (20:28)
[2023-07-27] MEDS: traZODone 50 MG TAB PO PRN (20:29)
[2023-07-28 06:51] VITALS: BP 151/76; TEMP 98.7; O2SAT 100
[2023-07-28] MEDS: VALPROIC ACID 250MG CAP PO SCH ×2 (10:04→21:05)
[2023-07-28 16:02] VITALS: BP 117/59; TEMP 98.1; O2SAT 100
[2023-07-28] MEDS: OLANZapine ORAL DISINTEGRATING TAB 5MG PO PRN (17:00)
[2023-07-28] MEDS: MIRTAZAPINE 15 MG TAB PO SCH (21:05)
[2023-07-28] MEDS: traZODone 50 MG TAB PO PRN (21:09)
[2023-07-29] MEDS ORDERED: VALP1CAP2 PO (06:36)
[2023-07-29] MEDS ORDERED: MIRT-10 PO (06:36)
[2023-07-29 06:37] VITALS: BP 109/65; TEMP 98; O2SAT 100
[2023-07-29] MEDS: VALPROIC ACID 250MG CAP PO SCH (09:26)
== END 2023-07-29 12:41 | disposition home or self-care (01) | DRG 750 ==
LOC: M ED 15:13 → M ED INP 22:24 → M PSY 23:41
PROVIDERS: ADMIT Psychiatry & Neurology Psychiatry; ATTEND Student in an Organized Health Care Education/Training Program
DX: F25.0 Schizoaffective disorder, bipolar type (principal); F41.1 Generalized anxiety disorder; F17.210 Nicotine dependence, cigarettes, uncomplicated; F14.10 Cocaine abuse, uncomplicated; R45.851 Suicidal ideations; Z79.899 Other long term (current) drug therapy; K59.00 Constipation, unspecified

== ENCOUNTER → 2025-10-16 | Outpatient (REF) | payer MEDICAID ==
[~2025-10-16] MED LIST changes: -AMBI5TAB PO; +DEPA250T PO; -DEPA250T2 PO; +DIVA250T7 PO; +MIRT-10 PO; +OSEL75CA2 PO; +VALP1CAP2 PO; +ZOLP-532 PO; +ZOLP10TA11 PO; -ZOLP10TA2 PO
== END ==
LOC: M LAB REF 16:49
PROVIDERS: ATTEND Physician Assistant Medical
DX: B34.9 Viral infection, unspecified (principal)